=== PATIENT | female | born 1965 | race Caucasian/White ===

== ENCOUNTER → 2018-03-05 | Outpatient (CLI) | payer BC ==
[2018-03-09 11:51] LABS: QUANTIF MITOGEN-NIL 9.14 IU/ML; QUANTIFERON NEGATIVE (NEGATIVE); QUANTIFERON NIL 0.55 IU/ML
== END | disposition home or self-care (01) ==
LOC: C.LABSPEC 12:53
PROVIDERS: ATTEND Internal Medicine Gastroenterology
DX: K51.30 Ulcerative (chronic) rectosigmoiditis without complications (principal)

== ENCOUNTER 2021-11-23 15:46 | Inpatient (IN) ==
[2021-11-23] MEDS ORDERED: PIPERACILL/TAZOBAC CONSULT ACTIVE PRN (16:04)
[2021-11-23] MEDS ORDERED: PIPERACILLIN/TAZOBACTAM 4.5 GM/120 ML BAG IV ONE (16:04)
--- NOTE | 2021-11-23 16:25 | Emergency Department Note ---
History of Present Illness General Chief complaint: Abdominal Pain Stated complaint: REF FOR ACUTE APPENDICITIS, ABDOM PAIN Time Seen by Provider: 11/23/21 16:04 Source: patient History of Present Illness Provider complaint: Right abdominal pain Onset (ago): day(s) 3 Location: abdomen and right Radiation: non-radiation Pain Consistency: + constant Maximum Pain Intensity: 2 Quality: + dull Relieved By: + none Associated symptoms: + fever/chills and + loss of appetite; no chest pain, no cough, no nausea/vomiting or no shortness of breath This is a 55-year-old female who presents with right lower quadrant pain starting 3 days ago. She states it started on the right abdomen 3 days ago. She has some bowel issues and thought nothing of it but went to [facility] and a CT was ordered which showed acute appendicitis with an abscess. She was sent here for further evaluation. She describes the pain as dull. It is worse when he presses on it. She has had tactile fevers and chills and loss of appetite. She has not eaten anything since yesterday. She denies any cough or cold symptoms, chest pain, shortness of breath, vomiting, diarrhea or urinary symptoms. Home Medications Medication Instructions Recorded Confirmed Type acetaminophen 500 mg capsule 1,000 mg PO HS PRN 12/03/20 11/23/21 History escitalopram oxalate 10 mg tablet 10 mg PO DAILY 12/03/20 11/23/21 History risedronate 150 mg tablet 150 mg PO MONTHLY 12/03/20 11/23/21 History Infusion For Ibs 1 dose IV .Q6WK 11/23/21 11/23/21 History rosuvastatin 5 mg tablet 5 mg PO DAILY 11/23/21 11/23/21 History Allergies Allergy/AdvReac Type Severity Reaction Status Date / Time No Known Allergies Allergy Verified 11/23/21 17:34 Past Med/Surg History Medical History Prediabetes Social History Smoking Status: Former smoker Preferred Language: Colombian Feels Safe at Home: Yes Review of Systems See HPI for pertinent positives & negatives. and A total of 10 systems reviewed and were otherwise negative Physical Exam Vital Signs Vital Signs - 24 hr 11/23/21 15:48 Temperature 36.7 C Temperature Source Temporal Artery Scan Pulse Rate 94 H Pulse Rhythm Regular Pulse Strength Normal Respiratory Rate 20 Respiratory Effort / Characteristics Non-Labored Spontaneous Respiratory Depth Normal Respiratory Pattern Regular Blood Pressure 147/94 H Blood Pressure Mean 111 Blood Pressure Position Sitting Pulse Oximetry 97 Oxygen Delivery Method Room Air Sepsis Recent Fever Within 48 Hours No Sepsis New/Unexplained Change in Mental Status No Sepsis Action Taken by Nursing No Action Required Constitutional: Vital signs reviewed. Eyes: Pupils are equal round reactive to light. Conjunctiva are noninjected. ENT: Pharynx is clear without erythema or exudate. Mucous membranes are dry. Neck supple without meningeal signs. Respiratory: Clear to auscultation bilaterally. Breath sounds are equal bilaterally. Cardiovascular: Regular rate and rhythm. No rubs or gallops. GI: Soft, nondistended with tenderness in the right lower quadrant. No guarding. Bowel sounds are present. Musculoskeletal: No peripheral edema. No lower extremity tenderness. Integumentary: No cyanosis. or jaundice. Neurological: The patient is awake and alert. No focal deficits. Psychiatric: Normal affect. Not anxious appearing. Course Administered Medications Discontinued Medications Piperacillin Sod/Tazobactam Sod (Zosyn) 4.5 gm in 120 mls @ 240 mls/hr IV NOW ONE Stop: 11/23/21 16:33 Last Infusion: 11/23/21 17:50 Dose: 0 mls/hr Documented by: [id number] Admin: 11/23/21 17:13 Dose: 240 mls/hr Documented by: [id number] Sodium Chloride (Nss 1000ml) 500 mls @ 999 mls/hr IV .Q31M ONE Stop: 11/23/21 17:06 Last Infusion: 11/23/21 17:51 Dose: 0 mls/hr Documented by: [id number] Admin: 11/23/21 17:13 Dose: 999 mls/hr Documented by: [id number] Medical Decision Making Differential Diagnosis Acute appendicitis, perforation, abscess, dehydration, IBS Medical Records Attestation: I reviewed the patient's medical records. I did perform a limited focused review of portions of the patient's old chart on the electronic medical record. The patient had a CT of the abdomen pelvis today which showed the following:Findings consistent with acute appendicitis. Extensive periappendiceal infiltration with suspected small periappendiceal abscess along the base of the appendix. The findings raise the possibility of perforated appendicitis. Wall thickening at the base of the cecum may be reactive. Underlying mucosal lesion cannot be excluded and findings could be evaluated at time of surgery. Prominent ileocolic lymph nodes are also indeterminate but probably reactive. Home Medications Current Medication List: was personally reviewed by me Laboratory Data Attestation: I reviewed the patient's lab results. Result diagrams: 11/23/21 16:58 11/23/21 16:58 Lab Results 11/23/21 11/23/21 11/23/21 Range/Units 16:58 16:58 17:15 WBC 7.48 (4.8-10.8) K/uL RBC 4.37 (4.2-5.4) M/uL Hgb 13.6 (12.0-16.0) g/dL Hct 38.2 (37-47) % MCV 87.4 (80-100) fL MCH 31.1 (25-34) pg MCHC 35.6 (32-36) g/dL RDW Std Deviation 41.2 (36.4-46.3) fL RDW Coeff of James 12.7 (11.5-14.5) % Plt Count 237 (130-400) K/uL MPV 10.8 H (7.4-10.4) fL Immature Gran % (Auto) 0.1 % Neut % (Auto) 61.8 % Lymph % (Auto) 26.3 % [place] % (Auto) 9.1 % Eos % (Auto) 2.4 % Baso % (Auto) 0.3 % Neut # (Auto) 4.62 (1.4-6.5) K/uL Lymph # (Auto) 1.97 (1.2-3.4) K/uL [place] # (Auto) 0.68 H (0.11-0.59) K/uL Eos # (Auto) 0.18 (0-0.5) K/uL Baso # (Auto) 0.02 (0-0.2) K/uL Immature Gran # (Auto) 0.01 (0.00-0.02) K/uL Sodium 136 (136-145) mmol/L Potassium 3.8 (3.5-5.1) mmol/L Chloride 100 (98-107) mmol/L Carbon Dioxide 26 (21-32) mmol/L Anion Gap 10 (3-11) BUN 8 (6-23) mg/dl Creatinine 0.59 L (0.6-1.2) mg/dl Est Cr Clr Drug Dosing 116.1 ml/min Est GFR ( Amer) 117.9 ml/min Est GFR (Non-Af Amer) 101.7 ml/min BUN/Creatinine Ratio 13.6 (10-20) Glucose 102 H (70-99(Fasting)) mg/dl Calcium 8.8 (8.5-10.1) mg/dl Total Bilirubin 0.6 (0.2-1.0) mg/dl AST 25 (13-39) U/L ALT 34 (7-52) U/L Alkaline Phosphatase 155 H (34-104) U/L Total Protein 7.6 (6.0-8.3) gm/dl Albumin 4.0 (3.4-5.0) gm/dl Globulin 3.6 (2.5-4.0) gm/dl Albumin/Globulin Ratio 1.1 (0.9-2) SARS-CoV-2, RNA, NAAT NEGATIVE (NEGATIVE) MDM Narrative I did evaluate the patient as noted above. She is sent here from her doctor's office for a CAT scan showing acute appendicitis with abscess. IV access was established. She declines any pain medication at this time. She was given normal saline IV as well as Zosyn IV. She was made NPO. I did order a screening COVID test. I did order and review the patient's blood work as noted in the electronic medical record. CBC demonstrates no leukocytosis or anemia or left shift. CMP is unremarkable other than an alk phos of 155. COVID testing is negative. I did discuss case with Dr. Vyas of surgery. He did assess the patient here in the emergency department and took her to the OR for surgical care. Impression & Plan Appendicitis with abscess Discharge Plan Visit Data Chief Complaint: Abdominal Pain Stated Complaint: REF FOR ACUTE APPENDICITIS, ABDOM PAIN ED Provider: Orion Leung Discharge Problem: Appendicitis with abscess Patient Disposition: Being Evaluated by Surgeon Forms Stand Alone Forms: My [facility] Prescriptions Prescriptions: No Action rosuvastatin 5 mg tablet 5 mg PO DAILY RF: 0 Infusion For Ibs 1 dose IV .Q6WK RF: 0 acetaminophen [Tylenol Extra Strength] 500 mg Capsule 1,000 mg PO HS PRN (Reason: Sleep) RF: 0 escitalopram oxalate 10 mg tablet 10 mg PO DAILY RF: 0 risedronate 150 mg tablet 150 mg PO MONTHLY RF: 0 Referrals Referrals: PCP,NO [Physician] -
[2021-11-23] MEDS ORDERED: SODIUM CHLORIDE 0.9% 1000ML 500 ML IV ONE (16:36)
[2021-11-23 17:10] LABS: Basophils # (auto) 0.02 K/uL (0-0.2); Basophils % (auto) 0.3 %; Eosinophils # (auto) 0.18 K/uL (0-0.5); Eosinophils % (auto) 2.4 %; Hematocrit (blood only) 38.2 % (37-47); Hemoglobin 13.6 g/dL (12.0-16.0); Immature Granulocytes # (auto) 0.01 K/uL (0.00-0.02); Immature Granulocytes % (auto) 0.1 %; Lymphocytes # (auto) 1.97 K/uL (1.2-3.4); Lymphocytes % (auto) 26.3 %; Mean Corpuscular Hemoglobin 31.1 pg (25-34); Mean Corpuscular Hgb Conc 35.6 g/dL (32-36); Mean Corpuscular Volume 87.4 fL (80-100); Mean Platelet Volume 10.8 fL (7.4-10.4); Monocytes # (auto) 0.68 K/uL (0.11-0.59); Monocytes % (auto) 9.1 %; Neutrophils # (auto) 4.62 K/uL (1.4-6.5); Neutrophils % (auto) 61.8 %; Platelet Count 237 K/uL (130-400); RDW Coefficient of Variation 12.7 % (11.5-14.5); RDW Standard Deviation 41.2 fL (36.4-46.3); Red Blood Count 4.37 M/uL (4.2-5.4); White Blood Count 7.48 K/uL (4.8-10.8)
[2021-11-23 17:51] LABS: Albumin Globulin Ratio 1.1 (0.9-2); BUN Creatinine Ratio 13.6 (10-20); Bilirubin,Total 0.6 mg/dl (0.2-1.0); Calcium 8.8 mg/dl (8.5-10.1); Creatinine Clr Calc Pharmacy 116.1 ml/min; Est GFR (African American) 117.9 ml/min; Est GFR (Non-African American) 101.7 ml/min; Globulin 3.6 gm/dl (2.5-4.0); Potassium 3.8 mmol/L (3.5-5.1); Total Protein 7.6 gm/dl (6.0-8.3)
--- NOTE | 2021-11-23 17:56 | Anesthesiology Consultation ---
Date of Service November 23, 2021 Assessment & Plan (1) Encounter for pre-operative examination: Chart Review Chart Review: Acceptable Risk for Surgery and Patient NOT seen in Pre Admission Testing Consults Requested none History Surgery Operation Date: 11/23/21 18:30 Proposed Procedures p Laparoscopic Appendectomy(Not Applicable) - Rusty Vyas MD Height/Weight Height: 5 ft 3 in Weight: 96.1 kg Allergies Allergy/AdvReac Type Severity Reaction Status Date / Time No Known Allergies Allergy Verified 11/23/21 17:34 Medications Home Medications Medication Instructions Recorded Confirmed Last Taken acetaminophen 500 mg capsule 1,000 mg PO HS PRN 12/03/20 11/23/21 12/02/20 escitalopram oxalate 10 mg tablet 10 mg PO DAILY 12/03/20 11/23/21 11/23/21 risedronate 150 mg tablet 150 mg PO MONTHLY 12/03/20 11/23/21 11/18/21 Infusion For Ibs 1 dose IV .Q6WK 11/23/21 11/23/21 Unknown rosuvastatin 5 mg tablet 5 mg PO DAILY 11/23/21 11/23/21 11/23/21 Past Medical History Medical History Prediabetes Social History Smoking Status: Former smoker Physical Exam Vital Signs Last Vital Signs Temp 98.1 F 11/23/21 15:48 Pulse 67 11/23/21 17:54 Resp 20 11/23/21 17:54 BP 131/67 11/23/21 17:54 Pulse Ox 96 11/23/21 17:54 Testing Laboratory Results 11/23/21 16:58 11/23/21 16:58
[2021-11-23] MEDS ORDERED: ROCURONIUM BROMIDE 10 MG/ML 5 ML VIAL IV ONE (17:58)
[2021-11-23] MEDS ORDERED: DEXAMETHASONE SOD INJ 4 MG/ML VIAL ONE (17:58)
[2021-11-23] MEDS ORDERED: MIDAZOLAM HCL 1 MG/ML 2ML VIAL ONE (17:58)
[2021-11-23] MEDS ORDERED: ONDANSETRON INJ 2 MG/ML 2 ML VIAL ONE ×2 (17:58→22:09)
[2021-11-23] MEDS ORDERED: PROPOFOL IV EMULSION 10 MG/ML 20 ML VIAL IV ONE (17:58)
[2021-11-23] MEDS ORDERED: LIDOCAINE 2% 2 ML VIAL/AMP(20MG/ML) INFIL ONE (17:58)
[2021-11-23] MEDS ORDERED: fentaNYL citrate 100 MCG/2 ML VIAL ONE ×3 (18:00→22:16)
[2021-11-23] MEDS ORDERED: LIDOCAINE 1% LOCAL 20 ML VIAL ONE (18:01)
[2021-11-23] MEDS ORDERED: BACITRACIN OINT 15 GM TUBE ONE (18:01)
[2021-11-23] MEDS ORDERED: BUPIVACAINE 0.5 % 5 MG/1 ML MPF 30ML VIAL ONE (18:01)
[2021-11-23] MEDS ORDERED: ePHEDrine sulfate 50 MG/ML AMP IV PRN (18:10)
[2021-11-23] MEDS ORDERED: ONDANSETRON INJ 2 MG/ML 2 ML VIAL IV PRN (18:10)
[2021-11-23] MEDS ORDERED: ATROPINE SULFATE 0.1 MG/ML 10ML SYR IV PRN (18:10)
[2021-11-23] MEDS ORDERED: fentaNYL citrate 100 MCG/2 ML VIAL IV PRN (18:10)
[2021-11-23] MEDS ORDERED: GLYCOPYRROLATE 0.2 MG/ML VIAL ONE (21:34)
[2021-11-23] MEDS ORDERED: KETOROLAC 30 MG/ML VIAL ONE (21:34)
[2021-11-23] MEDS ORDERED: NEOSTIGMINE METHYLSULFATE 1 MG/ML 10ML VIAL ONE (21:34)
--- NOTE | 2021-11-23 21:45 | Post Operative Brief Note ---
Immediate Post Op Note v1 Date of Surgery November 23, 2021 Pre & Post Diagnosis Operation Date: 11/23/21 18:30 Pre-Op Diagnosis: Appendicitis with abscess and perforated, Post-Op Diagnosis: Appendicitis with abscess and perforated, I identified the patient and participated in the time-out.: Yes Procedure Operation Date: 11/23/21 18:30 Actual Procedures p Laparoscopic Appendectomy(Not Applicable) - Rusty Vyas MD Surgeon Rusty Vyas MD Director Title operating room surgical technologist Estimated Blood Loss 15 Findings Consistent with Post-Op Diagnosis acute appendicitis with abscess and perforation, Fluids 1000ml Specimens appendix Drains Powell Catheter and Azar-Walker Drain Complications none Disposition Accompanied Patient To Recovery: Yes
--- NOTE | 2021-11-23 22:20 | Anesthesiology Progress Note ---
Date of Service November 23, 2021 Anesthesia Post Procedure Vital Signs Vital Signs: Temp Pulse Pulse Pulse Resp BP BP 11/23/21 22:10 83 13 141/80 H 11/23/21 22:00 90 18 148/78 H 11/23/21 21:54 97.5 F L 91 H 14 149/66 H 11/23/21 18:09 99.3 F 84 16 128/82 11/23/21 18:00 85 20 131/67 11/23/21 17:54 67 20 131/67 11/23/21 15:48 98.1 F 94 H 20 147/94 H Pulse Ox 11/23/21 22:10 98 11/23/21 22:00 98 11/23/21 21:54 95 11/23/21 18:09 98 11/23/21 18:00 97 11/23/21 17:54 96 11/23/21 15:48 97 Pain Intensity Abdomen: Pain Intensity: 5 Transfer of Care Handoff Completed per policy Notes Mental Status: alert / awake / arousable and participated in evaluation Patient Amnestic to Procedure: Yes Nausea / Vomiting: adequately controlled Pain: adequately controlled Airway Patency, RR, SpO2: stable & adequate BP & HR: stable & adequate Hydration State: stable & adequate Anesthetic Complications: no major complications apparent and Pt Satisfied with anesthetic care
[2021-11-24] MEDS ORDERED: ONDANSETRON INJ 2 MG/ML 2 ML VIAL IV PRN (00:05)
[2021-11-24] MEDS ORDERED: [UNRECOGNIZED DRUG - OTHER] IV SCH (00:05)
[2021-11-24] MEDS ORDERED: PIPERACILL/TAZOBAC CONSULT ACTIVE PRN (00:05)
[2021-11-24] MEDS ORDERED: oxyCODONE/ACETAMINOPHEN 5mg/325mg TAB PO PRN (00:05)
[2021-11-24] MEDS: LACTATED RINGER'S 1,000 ML IV SCH ×2 (00:20→22:26)
[2021-11-24] MEDS ORDERED: ACETAMINOPHEN 500 MG TAB PO PRN (00:31)
[2021-11-24] MEDS: PIPERACILLIN/TAZOBACTAM 4.5 GM in DEXTROSE 5% 100 ML IV SCH ×4 (01:19→23:22)
[2021-11-24] MEDS: HYDROmorphone INJ 1 MG/ML SYRINGE IV PRN ×4 (01:23→22:26)
--- NOTE | 2021-11-24 05:44 | Operative Report (OR) ---
PREOPERATIVE DIAGNOSIS: Acute appendicitis with perforation and abscess. POSTOPERATIVE DIAGNOSIS: Acute appendicitis with perforation and abscess. OPERATION: Laparoscopic appendectomy. KASANDRA drainage x1. SURGEON: Rusty Vyas MD ANESTHESIA: General. ESTIMATED BLOOD LOSS: About 15 mL. FINDINGS: Acute appendicitis with perforation and abscess. COMPLICATIONS: None. INDICATIONS FOR THE PROCEDURE: This is a 55-year-old female who presented to the ED with a 3-day his tory of acute abdominal pain. The patient had a CT scan diagnosis of acute appendicitis with perfora tion and abscess. After I reviewed the patient's history and physical exam, labs, and CT scan with t he patient, I recommended to do a laparoscopic appendectomy, possible open. I did talk to the patien t about the benefits, risks, alternate procedures. I indicated the risks may include, but not limite d to, such as bleeding, infection, injury to other organs, abscess, bowel leak, bowel obstruction, in cisional hernia. The patient understands. She signed informed consent and I answered all questions. DETAILS OF PROCEDURE: After we identified the patient and verified the procedure, we brought in the patient to the OR, put the patient in the supine position on the OR table. The patient received SCDs on bilateral legs to prevent DVT. Also, the patient received 3.375 grams Zosyn IV for prophylactic antibiotic. The patient received general anesthesia without difficulty. Also, the patient received Powell catheter insertion. The abdomen was prepped and draped in routine sterile fashion. After time out, I injected the local anesthesia by using 1% lidocaine mixed with 0.5% Marcaine just above the um bilicus. Then, I made a small incision just above umbilicus, opened fascia, opened peritoneum. Unde r direct vision, put a Patrick trocar in, connected to CO2 to create pneumoperitoneum, flow rate at 6 liters per minute, pressure not more than 14 mmHg. Once we got a nice pneumoperitoneum, we put the camera in and looked around the abdomen. It showed s ignificant inflammation on the right lower quadrant area, there was some free fluid on the pelvic are a. At this moment, we put another two 5 mm trocars on the left lower quadrant area and then we mobil ized the right lower quadrant area, there was some pus that came out immediately. We suctioned the p us out and sent to culture and then we mobilized the appendix. The appendix showed significant infla mmation. Also, the patient had perforation on the base of the appendix and at this moment, we comple tely mobilized the appendix. Then, we used the Harmonic to take down the appendiceal, and we used st aple transection on the base of appendix including the perforation of the appendix, transection of th e appendix on the base of appendix, rechecked the staple line, intact and no leak, no active bleeding . Then we used the catch bag to remove the appendix. Then, we reinserted the Patrick trocar in, conn ected to CO2 to create pneumoperitoneum, again looked around the abdomen and we suctioned all the flu id out and then we put one 10 mm KASANDRA drainage on the right lower quadrant area. Then I used 3-0 nylon and fixed the KASANDRA drainage on the skin. Then, we removed all trocars under direct vision. No active bleeding from the trocar site. The pneumoperitoneum was released. Then I closed the umbilical inci nancy fascial layer by using 0 Vicryl [id number] x2, closed subcutaneous layer by using 2-0 Vicry l interruptedly, closed skin by using 4-0 Vicryl continuous running, closed another 5 mm trocar site skin only by using 4-0 Vicryl. Then, we put the dressing on and then we removed the Powell catheter. The patient tolerated the procedure well. All instrument, needle and sponge counts were correct x2 at the end of the case. The patient was transferred to recovery room in stable condition. After the procedure, I did talk to the patient and patient's family member about the OR finding and the proced ure we did. The specimen was sent to pathology. Job ID: [id number]
[2021-11-24 06:24] LABS: Basophils # (auto) 0.01 K/uL (0-0.2); Basophils % (auto) 0.1 %; Hematocrit (blood only) 38.3 % (37-47); Hemoglobin 13.3 g/dL (12.0-16.0); Immature Granulocytes # (auto) 0.02 K/uL (0.00-0.02); Immature Granulocytes % (auto) 0.3 %; Lymphocytes # (auto) 0.88 K/uL (1.2-3.4); Lymphocytes % (auto) 11.1 %; Mean Corpuscular Hemoglobin 30.6 pg (25-34); Mean Corpuscular Hgb Conc 34.7 g/dL (32-36); Mean Platelet Volume 10.7 fL (7.4-10.4); Monocytes # (auto) 0.23 K/uL (0.11-0.59); Monocytes % (auto) 2.9 %; Neutrophils # (auto) 6.81 K/uL (1.4-6.5); Neutrophils % (auto) 85.6 %; Platelet Count 273 K/uL (130-400); RDW Coefficient of Variation 12.7 % (11.5-14.5); RDW Standard Deviation 41.2 fL (36.4-46.3); Red Blood Count 4.35 M/uL (4.2-5.4); White Blood Count 7.95 K/uL (4.8-10.8)
[2021-11-24 06:42] LABS: Albumin Globulin Ratio 1.1 (0.9-2); Albumin Level 3.8 gm/dl (3.4-5.0); BUN Creatinine Ratio 16.7 (10-20); Bilirubin,Total 0.6 mg/dl (0.2-1.0); Calcium 8.3 mg/dl (8.5-10.1); Creatinine Clr Calc Pharmacy 101.4 ml/min; Est GFR (African American) 113.7 ml/min; Est GFR (Non-African American) 98.1 ml/min; Globulin 3.5 gm/dl (2.5-4.0); Potassium 4.5 mmol/L (3.5-5.1); Total Protein 7.3 gm/dl (6.0-8.3)
[2021-11-24] MEDS: ROSUVASTATIN CALCIUM 5 MG TAB PO SCH (10:20)
[2021-11-24] MEDS: ESCITALOPRAM OXALATE 10 MG TAB PO SCH (10:20)
--- NOTE | 2021-11-24 10:50 | Surgery Progress Note ---
Date of Service November 24, 2021 Assessment & Plan (1) Appendicitis with abscess: Plan: F/U S/P laparoscopic appendectomy, POD 1 Plan, I update to pt about OR finding and the procedure pt had, pt understood, continue IV antibiotic, clear diet, OOB will F/U, Plan: F/U S/P laparoscopic appendectomy, POD 1 Plan, I update to pt about OR finding and the procedure pt had, pt understood, continue IV antibiotic, clear diet, OOB will F/U, Admission and Anticipated Discharge Date Admission Date: November 23, 2021 Subjective F/U S/P laparoscopic appendectomy, POD 1 pt feels better, less abdominal pain, T 37.1, KASANDRA 50 ml clear, Physical Exam Constitutional: WD/WN, vitals as above Eyes: PERRL, conjunctivae normal, anicteric sclerae Neck: trachea midline, no thyromegaly Respiratory: normal respiratory effort, lungs clear to auscultation Cardiovascular: RRR, no murmur, no edema Gastrointestinal (Abdomen): soft, mild tenderness at incision site, no rebound pain, no distend, BS +, KASANDRA intact, all incisions intact, no redness, Musculoskeletal: no cyanosis or clubbing, extremities motor strength 5/5 Neurologic: patellar DTR's 2+ bilat, sensation intact Psychiatric: A+Ox3, euthymic affect Results & Data ([facility]) Vital Signs (Past 12 Hours) Vital Signs Temp Pulse Pulse Resp BP BP Pulse Ox 11/24/21 07:30 37.1 C 72 20 117/70 90 11/24/21 03:00 36.9 C 76 16 132/78 90 11/24/21 00:00 36.7 C 77 14 133/80 93 11/23/21 23:30 36.8 C 82 16 123/79 93 11/23/21 23:00 36.7 C 80 14 123/79 93 Laboratory Results Abnormal lab results 11/23/21 11/23/21 11/24/21 Range/Units 16:58 16:58 05:42 MPV 10.8 H 10.7 H (7.4-10.4) fL Neut # (Auto) 6.81 H (1.4-6.5) K/uL Lymph # (Auto) 0.88 L (1.2-3.4) K/uL [place] # (Auto) 0.68 H (0.11-0.59) K/uL Creatinine 0.59 L (0.6-1.2) mg/dl Glucose 102 H (70-99(Fasting)) mg/dl Calcium (8.5-10.1) mg/dl Alkaline Phosphatase 155 H (34-104) U/L 11/24/21 Range/Units 05:42 MPV (7.4-10.4) fL Neut # (Auto) (1.4-6.5) K/uL Lymph # (Auto) (1.2-3.4) K/uL [place] # (Auto) (0.11-0.59) K/uL Creatinine (0.6-1.2) mg/dl Glucose 143 H (70-99(Fasting)) mg/dl Calcium 8.3 L (8.5-10.1) mg/dl Alkaline Phosphatase 139 H (34-104) U/L
[2021-11-25] MEDS: HYDROmorphone INJ 1 MG/ML SYRINGE IV PRN ×2 (05:51→12:39)
[2021-11-25] MEDS: LACTATED RINGER'S 1,000 ML IV SCH (05:51)
[2021-11-25] MEDS: ROSUVASTATIN CALCIUM 5 MG TAB PO SCH (08:45)
[2021-11-25] MEDS: ESCITALOPRAM OXALATE 10 MG TAB PO SCH (08:45)
[2021-11-25] MEDS: PIPERACILLIN/TAZOBACTAM 4.5 GM in DEXTROSE 5% 100 ML IV SCH (08:46)
--- NOTE | 2021-11-25 09:07 | Surgery Progress Note ---
Date of Service November 25, 2021 Assessment & Plan (1) Appendicitis with abscess: Plan: F/U S/P laparoscopic appendectomy, POD 1 Plan, I update to pt about OR finding and the procedure pt had, pt understood, continue IV antibiotic, clear diet, OOB will F/U, 11/25/2021 9:10 AM pt is doing fine, no fever, Discharge home today with po antibiotic, keep KASANDRA drainage, I will remove the KASANDRA on 11/28/2021 at my clinic, post-op care instruction was given, pt agrees with the discharge, I answered all questions, F/U me on 11/28/2021 Plan: F/U S/P laparoscopic appendectomy, POD 1 Plan, I update to pt about OR finding and the procedure pt had, pt understood, continue IV antibiotic, clear diet, OOB will F/U, Admission and Anticipated Discharge Date Admission Date: November 23, 2021 Subjective F/U S/P laparoscopic appendectomy, POD 1 pt feels better, less abdominal pain, T 37.1, KASANDRA 50 ml clear, 11/25/2021 9:08AM pt is doing better, no significant abdominal pain, no fever, T 36.4, KASANDRA 70 ml clear Physical Exam Constitutional: WD/WN, vitals as above Eyes: PERRL, conjunctivae normal, anicteric sclerae Neck: trachea midline, no thyromegaly Respiratory: normal respiratory effort, lungs clear to auscultation Cardiovascular: RRR, no murmur, no edema Gastrointestinal (Abdomen): soft, mild tenderness at incision site, no rebound pain, no distend, BS + KASANDRA intact, the incision intact, no redness, Musculoskeletal: no cyanosis or clubbing, extremities motor strength 5/5 Neurologic: patellar DTR's 2+ bilat, sensation intact Psychiatric: A+Ox3, euthymic affect Results & Data ([facility]) Vital Signs (Past 12 Hours) Vital Signs Temp Pulse Pulse Resp BP Pulse Ox 11/25/21 08:39 36.4 C L 90 20 129/75 92 11/24/21 23:12 36.6 C 72 16 126/75 92
--- NOTE | 2021-11-25 10:19 | Discharge Summary (DS) ---
DATE OF ADMISSION: 11/23/2021. DATE OF DISCHARGE: 11/25/2021. ADMITTING DIAGNOSES: Acute appendicitis with perforation and abscess. POSTOPERATIVE DIAGNOSES: Acute appendicitis with perforation and abscess. OPERATION: Laparoscopic appendectomy with KASANDRA drainage. SURGEON: Rusty Vyas MD. DETAILS OF DISCHARGE SUMMARY: This is a 55-year-old female who presented to ED with severe abdominal pain. The patient had a CT scan diagnosis of acute appendicitis with perforation and abscess. We t ook the patient to the OR, we did laparoscopic appendectomy, drainage of abscess with KASANDRA drainage and the patient tolerated the procedure well. After the procedure, the patient was transferred to [facility] room and later on transferred to regular floor. The patient is doing fine and patient tolerated a clear diet. No nausea, no vomiting. No significant abdominal pain. The patient's KASANDRA drainage was 70 mL, clear color. PHYSICAL EXAMINATION: VITAL SIGNS: Temperature is 36.4, heart rate 90, respiratory rate 20, blood pressure 129/75, O2 satu ration 92% on room air. GENERAL: The patient is alert, awake, oriented x3. HEENT: Within normal limitation. NEUROLOGIC: Intact. NECK: No JVD. CHEST: Bilateral lung sounds clear. HEART: Normal S1 and S2. No murmur. ABDOMEN: Soft, nondistended, mild tenderness on the incision site. No rebound pain. All incisions intact. No redness. KASANDRA drainage is intact. EXTREMITIES: No edema. The patient wanted to go home today. We gave the patient postoperative care instruction and keep the KASANDRA drainage until come back in my office on 11/28/2021 for removal of KASANDRA drainage. Also, we gave th e patient 7 days p.o. antibiotic. I will follow up the patient on 11/28/2021. The patient understan ds. The patient agreed to go home today. I answered all questions. Job ID: [id number]
== END 2021-11-25 14:45 | disposition home or self-care (01) | DRG 339 ==
LOC: ED 15:46 → ASU 18:00 → 3W 21:51

== ENCOUNTER 2023-01-29 13:25 | Inpatient (IN) ==
--- NOTE | 2023-01-29 14:05 | Emergency Department Note ---
History of Present Illness General Chief complaint: Diarrhea Stated complaint: REF BY ANAI, DIARRHEA Time Seen by Provider: 01/29/23 14:00 History of Present Illness Maximum Pain Intensity: 4 This 57-year-old female patient with a history of ulcerative colitis presents to the emergency department for evaluation of diarrhea for the past month. Having up to 25 bowel movements a day that are just small amounts of liquid stool at a time. Has a lot of fecal urgency as well. Yesterday and this morning she saw a small amount of bright red blood in her stool. Has also had weight loss, de creased appetite, nausea. Has a constant cramping in her abdomen. Denies any vomiting or fever. Has occasional lightheadedness and occasional feelings like she is going to pass out. She is on Entyvio every 4 weeks. She was on a budesonide taper 1 month ago, but states that she stopped it early because she did not feel it was helping. She tends to get flares of her UC every time she stops her steroids. She is due for her next Entyvio infusion tomorrow. She was diagnosed with UC at 31 years old. She has failed Humira in the past as well. She has been on Entyvio for 2.5 years. She has never been on oral medications for her UC other than steroids. She was seen in the emergency department on 01/25/2023 for the above symptoms as well with a CT scan of the abdomen and pelvis that showed mild wall thickening throughout the majority of the large bowel which may be secondary to partial distention versus a mild nonspecific colitis, but no other acute abnormalities. Urinalysis was concerning for UTI and she was started on cefdinir, but urine culture grew 3 types of organisms present which is probable skin angus. Stool sample was not able to be obtained in the ER on 01/25/2023. The patient states that she has been taking the cefdinir without improvement of her symptoms. She follows with [facility] and spoke with REINA Jackson this morning and was advised to come to the ER for probable admission. Has a colonoscopy scheduled for the end of this month. Had a sigmoidectomy on 09/27/22 that showed congested, erythematous, and granular mucosa in the rectum and the sigmoid colon. After this scope her Entyvio infusions were increased to every 4 weeks per patient. Home Medications Medication Instructions Recorded Confirmed Type acetaminophen 500 mg capsule 1,000 mg PO HS PRN Sleep 12/03/20 01/29/23 History risedronate 150 mg tablet 150 mg PO Q30D osteoporosis 12/03/20 01/29/23 History rosuvastatin 5 mg tablet 5 mg PO HS 11/23/21 01/29/23 History vedolizumab 300 mg intravenous 300 mg IV Q30D 09/23/22 01/29/23 History solution (Entyvio) cefdinir 300 mg capsule 300 mg PO BID 5 days #10 caps 01/25/23 01/29/23 Rx escitalopram oxalate 20 mg tablet 10 mg PO QPM 01/25/23 01/29/23 History ondansetron 4 mg disintegrating 4 mg PO Q8H PRN nausea and 01/25/23 01/29/23 Rx tablet vomiting #14 tabs tirzepatide 10 mg/0.5 mL 10 mg subcut WE 01/29/23 01/29/23 History subcutaneous pen injector (Dane) trazodone 50 mg tablet 25 mg PO HS 01/29/23 01/29/23 History Allergies Allergy/AdvReac Type Severity Reaction Status Date / Time No Known Allergies Allergy Verified 01/29/23 16:43 Past Med/Surg History Medical History Anxiety History of COVID-19 beginning 2021, home test, mild symptoms>resolved Hx of flexible sigmoidoscopy Hyperlipidemia IBS (irritable bowel syndrome) Osteoporosis Prediabetes Sleep apnea CPAP Surgical History Hx of appendectomy Hx of colonoscopy Social History Smoking Status: Never smoker Second Hand Exposure: No; Do You Dip or Chew Tobacco: No; Hx Alcohol Use: No Hx Substance Use: No Preferred Language: Kyrgyz Communication Ability: Effective Circuitry Negative Inspector Required: No Beliefs That Will Affect Care: None Current Living Situation: Other Current Living Situation Comment: roommate Feels Safe at Home: Yes Assistive Devices: CPAP and Glasses Review of Systems See HPI for pertinent positives & negatives. Physical Exam Vital Signs Vital Signs - 24 hr 01/29/23 13:37 01/29/23 14:35 01/29/23 14:35 Temperature 36.2 C L Temperature Source Skin Pulse Rate 94 H Pulse Rate [Left Finger] 86 Respiratory Rate 20 18 Respiratory Effort / Characteristics Non-Labored Respiratory Depth Normal Blood Pressure 132/90 Blood Pressure [Left Arm] 123/66 Blood Pressure Mean 104 Blood Pressure Mean [Left Arm] 85 Pulse Oximetry 98 95 94 Oxygen Delivery Method Room Air Room Air Room Air Sepsis Recent Fever Within 48 Hours No Sepsis New/Unexplained Change in Mental Status N/A Sepsis Action Taken by Nursing No Action Required 01/29/23 16:00 Temperature Temperature Source Pulse Rate Pulse Rate [Left Finger] 88 Respiratory Rate Respiratory Effort / Characteristics Respiratory Depth Blood Pressure Blood Pressure [Left Arm] 129/76 Blood Pressure Mean Blood Pressure Mean [Left Arm] 93 Pulse Oximetry 97 Oxygen Delivery Method Sepsis Recent Fever Within 48 Hours Sepsis New/Unexplained Change in Mental Status Sepsis Action Taken by Nursing VITALS: Vitals are noted on the nurse's note and reviewed by myself. GENERAL: Non toxic, no acute distress, non-diaphoretic. SKIN: Capillary refill <2 sec. EYES: PERRLA. EOMI. Conjunctivae without injection, sclerae without icterus. NOSE: Patent without discharge. MOUTH: Mucous membranes moist. Uvula midline. Airway patent. NECK: Supple without nuchal rigidity. HEART: Regular rate and rhythm without murmurs gallops or rubs. LUNGS: Clear to auscultation bilaterally without wheezes, rales or rhonchi. No retractions or accessory muscle use. ABDOMEN: Positive bowel sounds x 4. Normal tympanic percussion. Soft, mild diffuse tenderness to palpation, without masses or organomegaly. She states there is no change in her abdominal pain or tenderness since her CT scan. No CVA tenderness. Ivy sign negative. No guarding or rebound tenderness. No focal RLQ or LLQ tenderness. Course Administered Medications Discontinued Medications Sodium Chloride (Nss 1000ml) 1,000 mls @ 999 mls/hr IV .Q1H1M STA Stop: 01/29/23 15:35 Last Infusion: 01/29/23 18:30 Dose: 0 mls/hr Documented By: Admin: 01/29/23 15:11 Dose: 999 mls/hr Documented By: MARJORIE Sodium Chloride (Nss 1000ml) 1,000 mls @ 999 mls/hr IV .Q1H1M ONE Stop: 01/29/23 17:21 Last Infusion: 01/29/23 18:30 Dose: 0 mls/hr Documented By: Admin: 01/29/23 16:52 Dose: 999 mls/hr Documented By: ACC Metoclopramide HCl (Metoclopramide Hcl Inj 5 Mg/Ml 2 Ml Vial) 10 mg IV NOW STA Stop: 01/29/23 16:22 Last Admin: 01/29/23 16:52 Dose: 10 mg Documented By: ACC Ondansetron HCl (Ondansetron Inj 2 Mg/Ml 2 Ml Vial) 4 mg IV NOW STA Stop: 01/29/23 14:36 Last Admin: 01/29/23 15:11 Dose: 4 mg Documented By: BMK Medical Decision Making Differential Diagnosis Differential diagnosis includes UC flare, C. difficile, viral diarrheal illness, Giardia, O&P infection, colitis, dehydration, abdominal abscess, abdominal perforation, UTI, pyelonephritis, or others. Laboratory Data Attestation: I reviewed the patient's lab results. 01/29/23 14:56 01/29/23 14:56 Lab Results 01/29/23 01/29/23 01/29/23 Range/Units 14:55 14:56 14:56 WBC 4.53 L (4.8-10.8) K/ul RBC 4.43 (4.20-5.40) M/uL Hgb 13.9 (12.0-16.0) g/dl Hct 37.8 (37.0-47.0) % MCV 85.3 (80.0-100.0) fL MCH 31.4 (25.0-34.0) pg MCHC 36.8 H (32.0-36.0) g/dL RDW Std Deviation 38.4 (36.4-46.3) fL RDW Coeff of James 12.5 (11.5-14.5) % Plt Count 212 (130-400) K/uL MPV 10.9 (9.4-12.4) fL Immature Gran % (Auto) 0.2 % Neut % (Auto) 55.4 % Lymph % (Auto) 29.8 % Parker % (Auto) 12.6 % Eos % (Auto) 1.3 % Baso % (Auto) 0.7 % Neut # (Auto) 2.51 (1.40-6.50) K/uL Lymph # (Auto) 1.35 (1.2-3.4) K/uL Parker # (Auto) 0.57 (0.11-0.59) K/uL Eos # (Auto) 0.06 (0-0.50) K/uL Baso # (Auto) 0.03 (0-0.2) K/uL Immature Gran # (Auto) 0.01 (0.01-0.20) K/uL ESR 33 H (0-30) mm/hr PT (9.0-12.0) Seconds INR (0.9-1.1) APTT (21.0-31.0) Seconds PTT Ratio Sodium (136-145) mmol/L Potassium (3.5-5.1) mmol/L Chloride (98-107) mmol/L Carbon Dioxide (21-32) mmol/L Anion Gap (3-11) BUN (6-23) mg/dl Creatinine (0.6-1.2) mg/dl Est Cr Clr Drug Dosing ml/min Est GFR ( Amer) ml/min Est GFR (Non-Af Amer) ml/min BUN/Creatinine Ratio (10-20) Glucose (70-99(Fasting)) mg/dl Lactate (0.4-2.0) mmol/L Calcium (8.6-10.3) mg/dl Total Bilirubin (0.2-1.0) mg/dl AST (13-39) U/L ALT (7-52) U/L Alkaline Phosphatase (34-104) U/L C-Reactive Protein (0-0.5) mg/dl Total Protein (6.0-8.3) gm/dl Albumin (3.4-5.0) gm/dl Globulin (2.5-4.0) gm/dl Albumin/Globulin Ratio (0.9-2) Lipase (11-82) U/L Urine Color Yellow Urine Appearance Cloudy A (Clear) Urine pH 5.5 (4.5-7.5) Ur Specific [place] 1.014 (1.000-1.030) Urine Protein Trace H (Negative) Urine Glucose (UA) Negative (Negative) Urine Ketones 4+ H (Negative) Urine Blood 1+ H (Negative) Urine Nitrite Negative (Negative) Urine Bilirubin Negative (Negative) Urine Urobilinogen Negative (Negative) Ur Leukocyte Esterase 2+ H (Negative) Urine WBC (Auto) >30 H (0-5) /hpf Urine RBC (Auto) 0-4 (0-4) /hpf U Hyaline Cast (Auto) 5-10 H (0-5) /lpf U Epithel Cells (Auto) >30 H (0-5) /lpf Urine Bacteria (Auto) Negative (Negative) Stl C. diff Tox B Gene (Neg) SARS-CoV-2, RNA, NAAT (NEGATIVE) 01/29/23 01/29/23 01/29/23 Range/Units 14:56 14:56 14:57 WBC (4.8-10.8) K/ul RBC (4.20-5.40) M/uL Hgb (12.0-16.0) g/dl Hct (37.0-47.0) % MCV (80.0-100.0) fL MCH (25.0-34.0) pg MCHC (32.0-36.0) g/dL RDW Std Deviation (36.4-46.3) fL RDW Coeff of James (11.5-14.5) % Plt Count (130-400) K/uL MPV (9.4-12.4) fL Immature Gran % (Auto) % Neut % (Auto) % Lymph % (Auto) % Parker % (Auto) % Eos % (Auto) % Baso % (Auto) % Neut # (Auto) (1.40-6.50) K/uL Lymph # (Auto) (1.2-3.4) K/uL Parker # (Auto) (0.11-0.59) K/uL Eos # (Auto) (0-0.50) K/uL Baso # (Auto) (0-0.2) K/uL Immature Gran # (Auto) (0.01-0.20) K/uL ESR (0-30) mm/hr PT 11.9 (9.0-12.0) Seconds INR 1.1 (0.9-1.1) APTT 28.5 (21.0-31.0) Seconds PTT Ratio 1.0 Sodium 138 (136-145) mmol/L Potassium 3.3 L (3.5-5.1) mmol/L Chloride 98 (98-107) mmol/L Carbon Dioxide 25 (21-32) mmol/L Anion Gap 15 H (3-11) BUN 2 L (6-23) mg/dl Creatinine 0.72 (0.6-1.2) mg/dl Est Cr Clr Drug Dosing 88.7 ml/min Est GFR ( Amer) 106.2 ml/min Est GFR (Non-Af Amer) 91.7 ml/min BUN/Creatinine Ratio 2.8 L (10-20) Glucose 79 (70-99(Fasting)) mg/dl Lactate (0.4-2.0) mmol/L Calcium 9.5 (8.6-10.3) mg/dl Total Bilirubin 0.6 (0.2-1.0) mg/dl AST 20 (13-39) U/L ALT 21 (7-52) U/L Alkaline Phosphatase 67 (34-104) U/L C-Reactive Protein 2.39 H (0-0.5) mg/dl Total Protein 7.2 (6.0-8.3) gm/dl Albumin 4.3 (3.4-5.0) gm/dl Globulin 2.9 (2.5-4.0) gm/dl Albumin/Globulin Ratio 1.5 (0.9-2) Lipase 14 (11-82) U/L Urine Color Urine Appearance (Clear) Urine pH (4.5-7.5) Ur Specific [place] (1.000-1.030) Urine Protein (Negative) Urine Glucose (UA) (Negative) Urine Ketones (Negative) Urine Blood (Negative) Urine Nitrite (Negative) Urine Bilirubin (Negative) Urine Urobilinogen (Negative) Ur Leukocyte Esterase (Negative) Urine WBC (Auto) (0-5) /hpf Urine RBC (Auto) (0-4) /hpf U Hyaline Cast (Auto) (0-5) /lpf U Epithel Cells (Auto) (0-5) /lpf Urine Bacteria (Auto) (Negative) Stl C. diff Tox B Gene (Neg) SARS-CoV-2, RNA, NAAT NEGATIVE (NEGATIVE) 01/29/23 01/29/23 Range/Units 14:58 17:45 WBC (4.8-10.8) K/ul RBC (4.20-5.40) M/uL Hgb (12.0-16.0) g/dl Hct (37.0-47.0) % MCV (80.0-100.0) fL MCH (25.0-34.0) pg MCHC (32.0-36.0) g/dL RDW Std Deviation (36.4-46.3) fL RDW Coeff of James (11.5-14.5) % Plt Count (130-400) K/uL MPV (9.4-12.4) fL Immature Gran % (Auto) % Neut % (Auto) % Lymph % (Auto) % Parker % (Auto) % Eos % (Auto) % Baso % (Auto) % Neut # (Auto) (1.40-6.50) K/uL Lymph # (Auto) (1.2-3.4) K/uL Parker # (Auto) (0.11-0.59) K/uL Eos # (Auto) (0-0.50) K/uL Baso # (Auto) (0-0.2) K/uL Immature Gran # (Auto) (0.01-0.20) K/uL ESR (0-30) mm/hr PT (9.0-12.0) Seconds INR (0.9-1.1) APTT (21.0-31.0) Seconds PTT Ratio Sodium (136-145) mmol/L Potassium (3.5-5.1) mmol/L Chloride (98-107) mmol/L Carbon Dioxide (21-32) mmol/L Anion Gap (3-11) BUN (6-23) mg/dl Creatinine (0.6-1.2) mg/dl Est Cr Clr Drug Dosing ml/min Est GFR ( Amer) ml/min Est GFR (Non-Af Amer) ml/min BUN/Creatinine Ratio (10-20) Glucose (70-99(Fasting)) mg/dl Lactate 1.2 (0.4-2.0) mmol/L Calcium (8.6-10.3) mg/dl Total Bilirubin (0.2-1.0) mg/dl AST (13-39) U/L ALT (7-52) U/L Alkaline Phosphatase (34-104) U/L C-Reactive Protein (0-0.5) mg/dl Total Protein (6.0-8.3) gm/dl Albumin (3.4-5.0) gm/dl Globulin (2.5-4.0) gm/dl Albumin/Globulin Ratio (0.9-2) Lipase (11-82) U/L Urine Color Urine Appearance (Clear) Urine pH (4.5-7.5) Ur Specific [place] (1.000-1.030) Urine Protein (Negative) Urine Glucose (UA) (Negative) Urine Ketones (Negative) Urine Blood (Negative) Urine Nitrite (Negative) Urine Bilirubin (Negative) Urine Urobilinogen (Negative) Ur Leukocyte Esterase (Negative) Urine WBC (Auto) (0-5) /hpf Urine RBC (Auto) (0-4) /hpf U Hyaline Cast (Auto) (0-5) /lpf U Epithel Cells (Auto) (0-5) /lpf Urine Bacteria (Auto) (Negative) Stl C. diff Tox B Gene Negative Cdiff Gene (Neg) SARS-CoV-2, RNA, NAAT (NEGATIVE) MDM Narrative I examined the patient. I reviewed the patient's visit from 01/25/2023. An IV lock was placed and labs were drawn. She was given a total of 2 L normal saline solution bolus. She was given Zofran 4 mg IV followed by Reglan 10 mg IV for nausea. She declined any medication for pain while in the emergency department. White blood cell count stable at 4.53. Hemoglobin normal at 13.9. Platelet count normal. ESR elevated at 33 with CRP elevated at 2.39. Lactate was normal. Potassium 3.3 and anion gap 15, but CMP otherwise essentially normal. Lipase was normal. COVID was negative. Urinalysis with trace protein, 4+ ketones, 1+ blood, 2+ leukocyte Estrace, greater than 30 white blood cells, greater than 30 epithelial cells, and no bacteria which is similar, but slightly improved from her previous urinalysis. The patient's urine culture from 01/25/2023 showed 3 types of organisms present, all moderate counts, probable skin angus. Therefore, we will hold on treating for UTI at this time pending repeat culture results. I do not feel that repeat CT scan is needed at this time as the patient has had no change in her abdominal pain or tenderness since her CT scan on 01/25/2023 per patient. She has been afebrile. The patient was unable to give a stool sample while in the emergency department, but upon dictation of this chart the patient's stool studies after admission were reviewed. Stool bio fire was negative and C. difficile was negative. Fecal calprotectin is still pending. I spoke with REINA Jackson who typically sees the patient in the office via [facility] [place] text. She states that the patient has really been struggling outpatient because of treatment failures and feels that she may benefit from inpatient management. I spoke with Dr. Mishra of [facility] who is on-call and agrees that the patient would likely benefit from inpatient management. He recommended obtaining the results of the C. difficile prior to starting any IV steroids. If the C. difficile is negative, she can be started on Solu-Medrol 40 mg IV twice daily. He recommended admission by medicine. I spoke with the on-call hospitalist who agreed to admit the patient. Please refer to their dictation for further details. The patient's care was transferred in stable condition. Impression & Plan Ulcerative colitis, Diarrhea Discharge Plan Visit Data Chief Complaint: Diarrhea Stated Complaint: REF BY DOC, DIARRHEA ED Provider: Edgard Plasencia ED Midlevel Provider: Kayy Jones Discharge Problem: Ulcerative colitis, Diarrhea Patient Disposition: Admitted As Inpatient Condition: Good Discharge Instructions Interventions: ED Discharge Assessment Last Done: 01/29/23 20:35 Ulcerative colitis Qualifiers: Ulcerative colitis location: unspecified ulcerative colitis location Digestive disease complication type: with rectal bleeding Qualified Code(s): K51.911 - Ulcerative colitis, unspecified with rectal bleeding Diarrhea Qualifiers: Diarrhea type: unspecified type Qualified Code(s): R19.7 - Diarrhea, unspecified
[2023-01-29] MEDS ORDERED: ONDANSETRON INJ 2 MG/ML 2 ML VIAL IV STA (14:35)
[2023-01-29] MEDS ORDERED: SODIUM CHLORIDE 0.9% 1000ML 1,000 ML IV STA (14:35)
[2023-01-29 15:18] LABS: Appearance Urine Cloudy (Clear); Bacteria Urine Automated Negative (Negative); Bilirubin Urine Negative (Negative); Blood Urine 1+ (Negative); Color Urine Yellow; Epithelial Cell Urine Auto >30 /lpf (0-5); Glucose Urine UA Negative (Negative); Ketones Urine 4+ (Negative); Leukocyte Esterase Urine 2+ (Negative); Nitrite Urine Negative (Negative); Protein Urine Trace (Negative); RBC Urine Automated 0-4 /hpf (0-4); Specific Gravity Urine 1.014 (1.000-1.030); Urobilinogen Urine Negative (Negative); WBC Urine Automated >30 /hpf (0-5); pH Urine 5.5 (4.5-7.5)
[2023-01-29 15:23] LABS: Basophils # (auto) 0.03 K/uL (0-0.2); Basophils % (auto) 0.7 %; Eosinophils # (auto) 0.06 K/uL (0-0.50); Eosinophils % (auto) 1.3 %; Hematocrit (blood only) 37.8 % (37.0-47.0); Hemoglobin 13.9 g/dl (12.0-16.0); Immature Granulocytes # (auto) 0.01 K/uL (0.01-0.20); Immature Granulocytes % (auto) 0.2 %; Lymphocytes # (auto) 1.35 K/uL (1.2-3.4); Lymphocytes % (auto) 29.8 %; Mean Corpuscular Hemoglobin 31.4 pg (25.0-34.0); Mean Corpuscular Hgb Conc 36.8 g/dL (32.0-36.0); Mean Corpuscular Volume 85.3 fL (80.0-100.0); Mean Platelet Volume 10.9 fL (9.4-12.4); Monocytes # (auto) 0.57 K/uL (0.11-0.59); Monocytes % (auto) 12.6 %; Neutrophils # (auto) 2.51 K/uL (1.40-6.50); Neutrophils % (auto) 55.4 %; Platelet Count 212 K/uL (130-400); RDW Coefficient of Variation 12.5 % (11.5-14.5); RDW Standard Deviation 38.4 fL (36.4-46.3); Red Blood Count 4.43 M/uL (4.20-5.40); White Blood Count 4.53 K/ul (4.8-10.8)
[2023-01-29 15:34] LABS: Albumin Globulin Ratio 1.5 (0.9-2); Albumin Level 4.3 gm/dl (3.4-5.0); BUN Creatinine Ratio 2.8 (10-20); Bilirubin,Total 0.6 mg/dl (0.2-1.0); C Reactive Protein 2.39 mg/dl (0-0.5); Calcium 9.5 mg/dl (8.6-10.3); Creatinine Clr Calc Pharmacy 88.7 ml/min; Est GFR (African American) 106.2 ml/min; Est GFR (Non-African American) 91.7 ml/min; Globulin 2.9 gm/dl (2.5-4.0); Potassium 3.3 mmol/L (3.5-5.1); Total Protein 7.2 gm/dl (6.0-8.3)
[2023-01-29 15:45] LABS: INR 1.1 (0.9-1.1); Partial Thromboplastin Time 28.5 Seconds (21.0-31.0); Prothrombin Time 11.9 Seconds (9.0-12.0)
[2023-01-29] MEDS ORDERED: METOCLOPRAMIDE HCL INJ 5 MG/ML 2 ML VIAL IV STA (16:21)
[2023-01-29] MEDS ORDERED: SODIUM CHLORIDE 0.9% 1000ML 1,000 ML IV ONE (16:21)
--- NOTE | 2023-01-29 18:48 | History & Physical Report ---
Date of Service January 29, 2023 Assessment & Plan (1) Ulcerative colitis with rectal bleeding: Plan: Suspected. GI recommending c. diff testing prior to starting on IV steroids. Will await C. diff testing prior to starting on Solu-medrol 40mg IV BID Consult gastroenterology for ongoing management (2) Starvation ketoacidosis: Plan: D5 added to fluids, should improve with diet and treatment for above Anion gap compensated with bicarb 25 suspect from diarrhea Plan VTE Prophyaxis - low risk Diet - regular Disposition - admit to med/surg Admission and Anticipated Discharge Date Admission Date: January 29, 2023 History of Present Illness Chief Complaint: Diarrhea Primary Care Provider: Charlee Severino MD Sophia Boothe is a 57 year old female with ulcerative colitis who presents to the ER with diarrhea, decreased appetite and generalized weakness. She reports ongoing watery diarrhea for the last moth with associated nausea and cramping. She is not passing much each bowel movement but having up to 25 bowel movements a day. She is currently taking Entyvio every 4 weeks. She was last on a budesonide taper 1 month ago and reports steroids usually works for her but she is unclear why her manager line has not start this again on this occasion. She was seen recently in the ER with the same symptoms on January [address] showing non-specific colitis. She was also diagnosed with a UTI and was taking a course of cefdinir although had no specific symptoms of this and urine culture subsequently grew mixed angus. ER provider discussed with her manager line Megan HUANG and recommend inpatient management for this. Allergies Allergy/AdvReac Type Severity Reaction Status Date / Time No Known Allergies Allergy Verified 01/29/23 16:43 Home Medications Medication Instructions Recorded Confirmed Type acetaminophen 500 mg capsule 1,000 mg PO HS PRN Sleep 12/03/20 01/29/23 History risedronate 150 mg tablet 150 mg PO Q30D osteoporosis 12/03/20 01/29/23 History rosuvastatin 5 mg tablet 5 mg PO HS 11/23/21 01/29/23 History vedolizumab 300 mg intravenous 300 mg IV Q30D 09/23/22 01/29/23 History solution (Entyvio) cefdinir 300 mg capsule 300 mg PO BID 5 days #10 caps 01/25/23 01/29/23 Rx escitalopram oxalate 20 mg tablet 10 mg PO QPM 01/25/23 01/29/23 History ondansetron 4 mg disintegrating 4 mg PO Q8H PRN nausea and 01/25/23 01/29/23 Rx tablet vomiting #14 tabs tirzepatide 10 mg/0.5 mL 10 mg subcut WE 01/29/23 01/29/23 History subcutaneous pen injector (Dane) trazodone 50 mg tablet 25 mg PO HS 01/29/23 01/29/23 History Past Med/Surg History Medical History Anxiety History of COVID-19 beginning 2021, home test, mild symptoms>resolved Hx of flexible sigmoidoscopy Hyperlipidemia IBS (irritable bowel syndrome) Osteoporosis Prediabetes Sleep apnea CPAP Surgical History Hx of appendectomy Hx of colonoscopy Social History Smoking Status: Former smoker Second Hand Exposure: No; Do You Dip or Chew Tobacco: No; Hx Alcohol Use: No Hx Substance Use: No Preferred Language: Mongolian Communication Ability: Effective Land Title Examiner Required: No Beliefs That Will Affect Care: None Current Living Situation: Significant Other Current Living Situation Comment: roommate Other Information That Helps Us Care for You: No Feels Safe at Home: Yes Safety Concerns: Feels Safe At This Time Assistive Devices: Glasses Review of Systems Review of Systems: All systems reviewed & are unremarkable except as noted in HPI & below Physical Exam Constitutional: WD/WN, vitals as above ENMT: external ear and nose normal, oropharynx normal Respiratory: normal respiratory effort, lungs clear to auscultation Cardiovascular: RRR, no murmur, no edema Gastrointestinal (Abdomen): normal bowel sounds, soft, nontender, no hepatosplenomegaly Musculoskeletal: no cyanosis or clubbing, extremities motor strength 5/5 Skin: no rashes, warm and dry Psychiatric: A+Ox3, euthymic affect Results & Data Results & Data Vital Signs (Past 12 Hours) Vital Signs Temp Pulse Pulse Resp BP BP Pulse Ox 01/29/23 16:00 88 129/76 97 01/29/23 14:35 86 18 123/66 94 01/29/23 14:35 95 01/29/23 13:37 36.2 C L 94 H 20 132/90 98 O2 Del Method 01/29/23 16:00 01/29/23 14:35 Room Air 01/29/23 14:35 Room Air 01/29/23 13:37 Room Air Laboratory Results Abnormal lab results 01/29/23 01/29/23 01/29/23 Range/Units 14:55 14:56 14:56 WBC 4.53 L (4.8-10.8) K/ul MCHC 36.8 H (32.0-36.0) g/dL ESR 33 H (0-30) mm/hr Potassium (3.5-5.1) mmol/L Anion Gap (3-11) BUN (6-23) mg/dl BUN/Creatinine Ratio (10-20) C-Reactive Protein (0-0.5) mg/dl Urine Appearance Cloudy A (Clear) Urine Protein Trace H (Negative) Urine Ketones 4+ H (Negative) Urine Blood 1+ H (Negative) Ur Leukocyte Esterase 2+ H (Negative) Urine WBC (Auto) >30 H (0-5) /hpf U Hyaline Cast (Auto) 5-10 H (0-5) /lpf U Epithel Cells (Auto) >30 H (0-5) /lpf 01/29/23 Range/Units 14:56 WBC (4.8-10.8) K/ul MCHC (32.0-36.0) g/dL ESR (0-30) mm/hr Potassium 3.3 L (3.5-5.1) mmol/L Anion Gap 15 H (3-11) BUN 2 L (6-23) mg/dl BUN/Creatinine Ratio 2.8 L (10-20) C-Reactive Protein 2.39 H (0-0.5) mg/dl Urine Appearance (Clear) Urine Protein (Negative) Urine Ketones (Negative) Urine Blood (Negative) Ur Leukocyte Esterase (Negative) Urine WBC (Auto) (0-5) /hpf U Hyaline Cast (Auto) (0-5) /lpf U Epithel Cells (Auto) (0-5) /lpf Medications Administered ER Medications Given: NSS 1L bolus Ondansetron 4mg IV NSS 1L bolus Metoclopramide 10mg IV ECG Rate (beats per minute): 83 Rhythm: normal sinus Findings: no acute ischemic change Comparison ECG Date: no prior available Code Status & VTE Plan Code Status Full VTE Prophylaxis Plan VTE Prophylaxis will be ordered: Yes PG Care Time/CCT Total # of Minutes Spent Total Time Spent with Patient: Total time spent is greater than 50% in coordination of care (as documented) at patient's floor/unit and/or counseling patient: Coding Level of Care Code 95994 INT INP/OBS CARE 2/55MIN Diagnoses Ulcerative colitis with rectal bleeding K51.911 Starvation ketoacidosis T73.0XXA; E87.29
[2023-01-29] MEDS ORDERED: ONDANSETRON INJ 2 MG/ML 2 ML VIAL IV PRN (20:35)
[2023-01-29] MEDS ORDERED: ACETAMINOPHEN 325 MG TAB PO PRN (20:35)
[2023-01-29 21:22] LABS: Adenovirus F 40/41 PCR Not Detected (NotDetected); Astrovirus PCR Not Detected (NotDetected); Campylobacter PCR Not Detected (NotDetected); Cryptosporidium PCR Not Detected (NotDetected); Cyclospora cayetanensis PCR Not Detected (NotDetected); Entamoeba histolytica PCR Not Detected (NotDetected); Enteroaggregative E.coli(EAEC) Not Detected (NotDetected); Enteropathogenic E.coli (EPEC) Not Detected (NotDetected); Enterotoxigenic E.coli (ETEC) Not Detected (NotDetected); Giardia lamblia PCR Not Detected (NotDetected); Norovirus GI/GII PCR Not Detected (NotDetected); Plesiomonas shigelloides PCR Not Detected (NotDetected); Rotavirus A PCR Not Detected (NotDetected); Salmonella PCR Not Detected (NotDetected); Sapovirus PCR Not Detected (NotDetected); Shiga-like Toxin E.coli (STEC) Not Detected (NotDetected); Shigella/Enteroinvasive E.coli Not Detected (NotDetected); Vibrio cholerae PCR Not Detected (NotDetected); Vibrio species PCR Not Detected (NotDetected); Yersinia enterocolitica PCR Not Detected (NotDetected)
[2023-01-29] MEDS: ESCITALOPRAM OXALATE 10 MG TAB PO SCH (21:54)
[2023-01-29] MEDS: ROSUVASTATIN CALCIUM 5 MG TAB PO SCH (21:54)
[2023-01-29] MEDS: traZODone HCL 50 MG TAB PO SCH (21:55)
[2023-01-29] MEDS: D5W AND 1/2NSS + 20MEQ KCL 20 MEQ/1,000 ML BAG IV SCH (21:55)
[2023-01-30] MEDS: methylPREDNISolone 40 MG in SYRINGE 0 ML IV SCH ×3 (00:36→20:43)
[2023-01-30] MEDS ORDERED: CALCIUM CARBONATE 500 MG CHEWABLE TAB PO PRN (01:52)
[2023-01-30] MEDS: D5W AND 1/2NSS + 20MEQ KCL 20 MEQ/1,000 ML BAG IV SCH (05:16)
[2023-01-30 06:44] LABS: Basophils # (auto) 0.02 K/uL (0-0.2); Basophils % (auto) 0.5 %; Eosinophils # (auto) 0.01 K/uL (0-0.50); Eosinophils % (auto) 0.2 %; Hematocrit (blood only) 37.2 % (37.0-47.0); Hemoglobin 13.6 g/dl (12.0-16.0); Immature Granulocytes # (auto) 0.03 K/uL (0.01-0.20); Immature Granulocytes % (auto) 0.7 %; Lymphocytes % (auto) 16.8 %; Mean Corpuscular Hemoglobin 31.1 pg (25.0-34.0); Mean Corpuscular Hgb Conc 36.6 g/dL (32.0-36.0); Mean Corpuscular Volume 84.9 fL (80.0-100.0); Mean Platelet Volume 10.9 fL (9.4-12.4); Monocytes % (auto) 2.4 %; Neutrophils % (auto) 79.4 %; Platelet Count 196 K/uL (130-400); RDW Coefficient of Variation 12.2 % (11.5-14.5); RDW Standard Deviation 37.3 fL (36.4-46.3); Red Blood Count 4.38 M/uL (4.20-5.40); White Blood Count 4.16 K/ul (4.8-10.8)
[2023-01-30 07:12] LABS: Alanine Aminotransferase 17 U/L (7-52); Albumin Globulin Ratio 1.5 (0.9-2); Albumin Level 3.8 gm/dl (3.4-5.0); Alkaline Phosphatase 60 U/L (34-104); Anion Gap 9 (3-11); Aspartate Aminotransferase 15 U/L (13-39); Bilirubin,Total 0.4 mg/dl (0.2-1.0); Blood Urea Nitrogen < 2 mg/dl (6-23); Calcium 8.5 mg/dl (8.6-10.3); Carbon Dioxide 25 mmol/L (21-32); Chloride 105 mmol/L (98-107); Creatinine Clr Calc Pharmacy 103.2 ml/min; Est GFR (African American) 114.4 ml/min; Est GFR (Non-African American) 98.7 ml/min; Globulin 2.6 gm/dl (2.5-4.0); Glucose 183 mg/dl (70-99(Fasting)); Magnesium 1.8 mg/dl (1.7-2.4); Sodium 139 mmol/L (136-145); Total Protein 6.4 gm/dl (6.0-8.3)
--- NOTE | 2023-01-30 08:12 | Hospitalist Progress Note ---
Date of Service January 30, 2023 Assessment & Plan (1) Ulcerative colitis with rectal bleeding: Plan: Suspected. Recent taper budesonide in prior months for UC w/ [facility]. Recent CTAP January 25 in ER w/o bowel obstruction. noting mild thickening throughout majority of large bowel and may be secondary to partial distension vs mild nonspecific colitis. ESR/CRP elevated Cdiff/PCR stool testing negative Placed on IV Methylprednisolone. Will need slow taper at discharge Protonix IVP daily -- discussed likely need for daily vs BID dosing given gastritis symptoms/reflux reported. Likely from steroid use. Denies any use of NSAIDs Tolerating diet this morning for first time in about a month. IVF decreased to 75cc/hr given dehydration on exam but improving. Will dc later today given tolerance of PO intake and monitor need for additional supplementation. GI on consult -- appreciate recs. Recs for Uceris 9mg PO daily x8 weeks if covered by insurance or 8 week taper prednisone starting at 40mg and decreasing by 5mg daily. Will need to reschedule Entyvio infusion as directed by GI Patient does have c-scope arranged for end of month with [facility]. Will need close f/u at discharge. Stool calprotectin level obtained- pending Continued inpatient stay - possible dc in next 24-48 hours (2) Starvation ketoacidosis: Plan: D5 added to fluids Anion gap resolved, suspect 2nd to diarrhea over past month IVF ordered for additional IVF given mild dehydration on exam but tolerating diet and will dc this afternoon if no issues Reflux: symptoms suspicious for such. Likely from steroid use/possible gastritis.Reports having to take Tums recently for symptoms. No NSAID use reported (she said she does NOT take any of those to prevent bleeding risk) PPI ordered - consider continuing at discharge. Can also consider increasing to BID if needed for additional control while on higher dose steroids Depression: Continue escitalopram Plan continued inpatient stay, IV steroids possible dc next 24-48 hours Will have moralez check Uceris Admission and Anticipated Discharge Date Admission Date: January 29, 2023 Supervising Physician Co-Signing Physician Notes The patient was not seen by me. The chart was reviewed. Case discussed with ALEXANDER Reed. Agree with assessment and plan Subjective Eval this morning, doing better than admission. Had been having decreased PO intake for about a month/lower abdominal cramping/pain/nausea. Some bright red spot of blood in bowels day prior from continued diarrhea. Diarrhea has slowed. Tolerated breakfast as first meal in about a month and doing alright. Given Protonix this morning for reflux and reports she had been having some ongoing reflux and wonders if she should be on this medication. Discussed at least once daily while on steroids. Seen by GI this morning. She has c-scope at end of month to discuss possible need for surgery. Currently on Entyvio and due for her dose. Discussed holding off for now w/ active infection and will arrange close f/u [facility] at discharge. Discussed monitoring/response to therapy with steroids and possible dc in next 24-48 hours pending her progress. Review of Systems Review of Systems: All systems reviewed & are unremarkable except as noted in HPI & below Physical Exam Physical Exam: General: WD/WN obese female resting in bed, NAD HEENT: head normocephalic, atraumatic, mm slightly dry (reported improved), trachea midline Resp: CTA, no w/c/r, on room air CV: RRR, no significant m/r/g, no calf tenderness GI: +BS throughout, mild tenderness lower abdomen without, guarding/rigidity : no knight MSK/Neuro: no focal deficits, no slurred speech, follows commands Psych: AOx3, cooperative and pleasant Results & Data Results & Data Vital Signs (Past 12 Hours) Vital Signs Temp Pulse Resp BP BP Pulse Ox O2 Del Method 01/30/23 07:31 36.6 C 84 16 136/79 95 Room Air 01/30/23 00:42 36.8 C 88 16 131/73 96 Room Air 01/29/23 23:37 36.7 C 95 H 18 156/88 H 97 Room Air 01/29/23 20:45 80 16 136/71 98 Room Air Laboratory Results 01/30/23 01/30/23 01/30/23 Range/Units 06:25 06:25 06:25 WBC 4.16 L (4.8-10.8) K/ul RBC 4.38 (4.20-5.40) M/uL Hgb 13.6 (12.0-16.0) g/dl Hct 37.2 (37.0-47.0) % MCV 84.9 (80.0-100.0) fL MCH 31.1 (25.0-34.0) pg MCHC 36.6 H (32.0-36.0) g/dL RDW Std Deviation 37.3 (36.4-46.3) fL RDW Coeff of James 12.2 (11.5-14.5) % Plt Count 196 (130-400) K/uL MPV 10.9 (9.4-12.4) fL Immature Gran % (Auto) 0.7 % Neut % (Auto) 79.4 % Lymph % (Auto) 16.8 % Weber % (Auto) 2.4 % Eos % (Auto) 0.2 % Baso % (Auto) 0.5 % Neut # (Auto) 3.30 (1.40-6.50) K/uL Lymph # (Auto) 0.70 L (1.2-3.4) K/uL Weber # (Auto) 0.10 L (0.11-0.59) K/uL Eos # (Auto) 0.01 (0-0.50) K/uL Baso # (Auto) 0.02 (0-0.2) K/uL Immature Gran # (Auto) 0.03 (0.01-0.20) K/uL ESR (0-30) mm/hr PT (9.0-12.0) Seconds INR (0.9-1.1) APTT (21.0-31.0) Seconds PTT Ratio Sodium 139 (136-145) mmol/L Potassium 4.0 D (3.5-5.1) mmol/L Chloride 105 (98-107) mmol/L Carbon Dioxide 25 (21-32) mmol/L Anion Gap 9 (3-11) BUN < 2 L (6-23) mg/dl Creatinine 0.62 (0.6-1.2) mg/dl Est Cr Clr Drug Dosing 103.2 ml/min Est GFR ( Amer) 114.4 ml/min Est GFR (Non-Af Amer) 98.7 ml/min BUN/Creatinine Ratio TNP (10-20) Glucose 183 H (70-99(Fasting)) mg/dl Lactate (0.4-2.0) mmol/L Calcium 8.5 L (8.6-10.3) mg/dl Magnesium 1.8 (1.7-2.4) mg/dl Total Bilirubin 0.4 (0.2-1.0) mg/dl AST 15 (13-39) U/L ALT 17 (7-52) U/L Alkaline Phosphatase 60 (34-104) U/L C-Reactive Protein (0-0.5) mg/dl Total Protein 6.4 (6.0-8.3) gm/dl Albumin 3.8 (3.4-5.0) gm/dl Globulin 2.6 (2.5-4.0) gm/dl Albumin/Globulin Ratio 1.5 (0.9-2) Lipase (11-82) U/L Urine Color Urine Appearance (Clear) Urine pH (4.5-7.5) Ur Specific Aldrich (1.000-1.030) Urine Protein (Negative) Urine Glucose (UA) (Negative) Urine Ketones (Negative) Urine Blood (Negative) Urine Nitrite (Negative) Urine Bilirubin (Negative) Urine Urobilinogen (Negative) Ur Leukocyte Esterase (Negative) Urine WBC (Auto) (0-5) /hpf Urine RBC (Auto) (0-4) /hpf U Hyaline Cast (Auto) (0-5) /lpf U Epithel Cells (Auto) (0-5) /lpf Urine Bacteria (Auto) (Negative) Stool Calprotectin Stl C. cayetanensis PCR (NotDetected) Stool Rotavirus A PCR (NotDetected) Stl Adenov F 40/41 PCR (NotDetected) Stool Astrovirus (PCR) (NotDetected) Stool Campylobacter PCR (NotDetected) Stl C. diff Tox B Gene (Neg) Stool Cryptosporidium PCR (NotDetected) Stl E.coli Shiga Tox PCR (NotDetected) Stl Enterotoxigenic E PCR (NotDetected) Stool EPEC (PCR) (NotDetected) Stool EAEC (PCR) (NotDetected) Stl E. histolytica PCR (NotDetected) Stool Giardia Lamblia PCR (NotDetected) Stool Salmonella PCR (NotDetected) Stool Sapovirus (PCR) (NotDetected) Stl P. shigelloides PCR (NotDetected) Stl Shigella/EIEC PCR (NotDetected) St Y.enterocolitica PCR (NotDetected) Stool Vibrio (PCR) (NotDetected) Stl Vibrio cholerae PCR (NotDetected) Stl Norovirus GI/GII PCR (NotDetected) Hepatitis C Ab (EIA) Pending SARS-CoV-2, RNA, NAAT (NEGATIVE) 01/29/23 01/29/23 01/29/23 Range/Units 19:14 19:14 17:45 WBC (4.8-10.8) K/ul RBC (4.20-5.40) M/uL Hgb (12.0-16.0) g/dl Hct (37.0-47.0) % MCV (80.0-100.0) fL MCH (25.0-34.0) pg MCHC (32.0-36.0) g/dL RDW Std Deviation (36.4-46.3) fL RDW Coeff of James (11.5-14.5) % Plt Count (130-400) K/uL MPV (9.4-12.4) fL Immature Gran % (Auto) % Neut % (Auto) % Lymph % (Auto) % Weber % (Auto) % Eos % (Auto) % Baso % (Auto) % Neut # (Auto) (1.40-6.50) K/uL Lymph # (Auto) (1.2-3.4) K/uL Weber # (Auto) (0.11-0.59) K/uL Eos # (Auto) (0-0.50) K/uL Baso # (Auto) (0-0.2) K/uL Immature Gran # (Auto) (0.01-0.20) K/uL ESR (0-30) mm/hr PT (9.0-12.0) Seconds INR (0.9-1.1) APTT (21.0-31.0) Seconds PTT Ratio Sodium (136-145) mmol/L Potassium (3.5-5.1) mmol/L Chloride (98-107) mmol/L Carbon Dioxide (21-32) mmol/L Anion Gap (3-11) BUN (6-23) mg/dl Creatinine (0.6-1.2) mg/dl Est Cr Clr Drug Dosing ml/min Est GFR ( Amer) ml/min Est GFR (Non-Af Amer) ml/min BUN/Creatinine Ratio (10-20) Glucose (70-99(Fasting)) mg/dl Lactate (0.4-2.0) mmol/L Calcium (8.6-10.3) mg/dl Magnesium (1.7-2.4) mg/dl Total Bilirubin (0.2-1.0) mg/dl AST (13-39) U/L ALT (7-52) U/L Alkaline Phosphatase (34-104) U/L C-Reactive Protein (0-0.5) mg/dl Total Protein (6.0-8.3) gm/dl Albumin (3.4-5.0) gm/dl Globulin (2.5-4.0) gm/dl Albumin/Globulin Ratio (0.9-2) Lipase (11-82) U/L Urine Color Urine Appearance (Clear) Urine pH (4.5-7.5) Ur Specific Aldrich (1.000-1.030) Urine Protein (Negative) Urine Glucose (UA) (Negative) Urine Ketones (Negative) Urine Blood (Negative) Urine Nitrite (Negative) Urine Bilirubin (Negative) Urine Urobilinogen (Negative) Ur Leukocyte Esterase (Negative) Urine WBC (Auto) (0-5) /hpf Urine RBC (Auto) (0-4) /hpf U Hyaline Cast (Auto) (0-5) /lpf U Epithel Cells (Auto) (0-5) /lpf Urine Bacteria (Auto) (Negative) Stool Calprotectin Pending Stl C. cayetanensis PCR Not Detected (NotDetected) Stool Rotavirus A PCR Not Detected (NotDetected) Stl Adenov F 40/41 PCR Not Detected (NotDetected) Stool Astrovirus (PCR) Not Detected (NotDetected) Stool Campylobacter PCR Not Detected (NotDetected) Stl C. diff Tox B Gene Negative Cdiff Gene (Neg) Stool Cryptosporidium PCR Not Detected (NotDetected) Stl E.coli Shiga Tox PCR Not Detected (NotDetected) Stl Enterotoxigenic E PCR Not Detected (NotDetected) Stool EPEC (PCR) Not Detected (NotDetected) Stool EAEC (PCR) Not Detected (NotDetected) Stl E. histolytica PCR Not Detected (NotDetected) Stool Giardia Lamblia PCR Not Detected (NotDetected) Stool Salmonella PCR Not Detected (NotDetected) Stool Sapovirus (PCR) Not Detected (NotDetected) Stl P. shigelloides PCR Not Detected (NotDetected) Stl Shigella/EIEC PCR Not Detected (NotDetected) St Y.enterocolitica PCR Not Detected (NotDetected) Stool Vibrio (PCR) Not Detected (NotDetected) Stl Vibrio cholerae PCR Not Detected (NotDetected) Stl Norovirus GI/GII PCR Not Detected (NotDetected) Hepatitis C Ab (EIA) SARS-CoV-2, RNA, NAAT (NEGATIVE) 01/29/23 01/29/23 01/29/23 Range/Units 14:58 14:57 14:56 WBC (4.8-10.8) K/ul RBC (4.20-5.40) M/uL Hgb (12.0-16.0) g/dl Hct (37.0-47.0) % MCV (80.0-100.0) fL MCH (25.0-34.0) pg MCHC (32.0-36.0) g/dL RDW Std Deviation (36.4-46.3) fL RDW Coeff of James (11.5-14.5) % Plt Count (130-400) K/uL MPV (9.4-12.4) fL Immature Gran % (Auto) % Neut % (Auto) % Lymph % (Auto) % Weber % (Auto) % Eos % (Auto) % Baso % (Auto) % Neut # (Auto) (1.40-6.50) K/uL Lymph # (Auto) (1.2-3.4) K/uL Weber # (Auto) (0.11-0.59) K/uL Eos # (Auto) (0-0.50) K/uL Baso # (Auto) (0-0.2) K/uL Immature Gran # (Auto) (0.01-0.20) K/uL ESR (0-30) mm/hr PT (9.0-12.0) Seconds INR (0.9-1.1) APTT (21.0-31.0) Seconds PTT Ratio Sodium 138 (136-145) mmol/L Potassium 3.3 L (3.5-5.1) mmol/L Chloride 98 (98-107) mmol/L Carbon Dioxide 25 (21-32) mmol/L Anion Gap 15 H (3-11) BUN 2 L (6-23) mg/dl Creatinine 0.72 (0.6-1.2) mg/dl Est Cr Clr Drug Dosing 88.7 ml/min Est GFR ( Amer) 106.2 ml/min Est GFR (Non-Af Amer) 91.7 ml/min BUN/Creatinine Ratio 2.8 L (10-20) Glucose 79 (70-99(Fasting)) mg/dl Lactate 1.2 (0.4-2.0) mmol/L Calcium 9.5 (8.6-10.3) mg/dl Magnesium (1.7-2.4) mg/dl Total Bilirubin 0.6 (0.2-1.0) mg/dl AST 20 (13-39) U/L ALT 21 (7-52) U/L Alkaline Phosphatase 67 (34-104) U/L C-Reactive Protein 2.39 H (0-0.5) mg/dl Total Protein 7.2 (6.0-8.3) gm/dl Albumin 4.3 (3.4-5.0) gm/dl Globulin 2.9 (2.5-4.0) gm/dl Albumin/Globulin Ratio 1.5 (0.9-2) Lipase 14 (11-82) U/L Urine Color Urine Appearance (Clear) Urine pH (4.5-7.5) Ur Specific Aldrich (1.000-1.030) Urine Protein (Negative) Urine Glucose (UA) (Negative) Urine Ketones (Negative) Urine Blood (Negative) Urine Nitrite (Negative) Urine Bilirubin (Negative) Urine Urobilinogen (Negative) Ur Leukocyte Esterase (Negative) Urine WBC (Auto) (0-5) /hpf Urine RBC (Auto) (0-4) /hpf U Hyaline Cast (Auto) (0-5) /lpf U Epithel Cells (Auto) (0-5) /lpf Urine Bacteria (Auto) (Negative) Stool Calprotectin Stl C. cayetanensis PCR (NotDetected) Stool Rotavirus A PCR (NotDetected) Stl Adenov F 40/41 PCR (NotDetected) Stool Astrovirus (PCR) (NotDetected) Stool Campylobacter PCR (NotDetected) Stl C. diff Tox B Gene (Neg) Stool Cryptosporidium PCR (NotDetected) Stl E.coli Shiga Tox PCR (NotDetected) Stl Enterotoxigenic E PCR (NotDetected) Stool EPEC (PCR) (NotDetected) Stool EAEC (PCR) (NotDetected) Stl E. histolytica PCR (NotDetected) Stool Giardia Lamblia PCR (NotDetected) Stool Salmonella PCR (NotDetected) Stool Sapovirus (PCR) (NotDetected) Stl P. shigelloides PCR (NotDetected) Stl Shigella/EIEC PCR (NotDetected) St Y.enterocolitica PCR (NotDetected) Stool Vibrio (PCR) (NotDetected) Stl Vibrio cholerae PCR (NotDetected) Stl Norovirus GI/GII PCR (NotDetected) Hepatitis C Ab (EIA) SARS-CoV-2, RNA, NAAT NEGATIVE (NEGATIVE) 01/29/23 01/29/23 01/29/23 Range/Units 14:56 14:56 14:56 WBC 4.53 L (4.8-10.8) K/ul RBC 4.43 (4.20-5.40) M/uL Hgb 13.9 (12.0-16.0) g/dl Hct 37.8 (37.0-47.0) % MCV 85.3 (80.0-100.0) fL MCH 31.4 (25.0-34.0) pg MCHC 36.8 H (32.0-36.0) g/dL RDW Std Deviation 38.4 (36.4-46.3) fL RDW Coeff of James 12.5 (11.5-14.5) % Plt Count 212 (130-400) K/uL MPV 10.9 (9.4-12.4) fL Immature Gran % (Auto) 0.2 % Neut % (Auto) 55.4 % Lymph % (Auto) 29.8 % Weber % (Auto) 12.6 % Eos % (Auto) 1.3 % Baso % (Auto) 0.7 % Neut # (Auto) 2.51 (1.40-6.50) K/uL Lymph # (Auto) 1.35 (1.2-3.4) K/uL Weber # (Auto) 0.57 (0.11-0.59) K/uL Eos # (Auto) 0.06 (0-0.50) K/uL Baso # (Auto) 0.03 (0-0.2) K/uL Immature Gran # (Auto) 0.01 (0.01-0.20) K/uL ESR 33 H (0-30) mm/hr PT 11.9 (9.0-12.0) Seconds INR 1.1 (0.9-1.1) APTT 28.5 (21.0-31.0) Seconds PTT Ratio 1.0 Sodium (136-145) mmol/L Potassium (3.5-5.1) mmol/L Chloride (98-107) mmol/L Carbon Dioxide (21-32) mmol/L Anion Gap (3-11) BUN (6-23) mg/dl Creatinine (0.6-1.2) mg/dl Est Cr Clr Drug Dosing ml/min Est GFR ( Amer) ml/min Est GFR (Non-Af Amer) ml/min BUN/Creatinine Ratio (10-20) Glucose (70-99(Fasting)) mg/dl Lactate (0.4-2.0) mmol/L Calcium (8.6-10.3) mg/dl Magnesium (1.7-2.4) mg/dl Total Bilirubin (0.2-1.0) mg/dl AST (13-39) U/L ALT (7-52) U/L Alkaline Phosphatase (34-104) U/L C-Reactive Protein (0-0.5) mg/dl Total Protein (6.0-8.3) gm/dl Albumin (3.4-5.0) gm/dl Globulin (2.5-4.0) gm/dl Albumin/Globulin Ratio (0.9-2) Lipase (11-82) U/L Urine Color Urine Appearance (Clear) Urine pH (4.5-7.5) Ur Specific Aldrich (1.000-1.030) Urine Protein (Negative) Urine Glucose (UA) (Negative) Urine Ketones (Negative) Urine Blood (Negative) Urine Nitrite (Negative) Urine Bilirubin (Negative) Urine Urobilinogen (Negative) Ur Leukocyte Esterase (Negative) Urine WBC (Auto) (0-5) /hpf Urine RBC (Auto) (0-4) /hpf U Hyaline Cast (Auto) (0-5) /lpf U Epithel Cells (Auto) (0-5) /lpf Urine Bacteria (Auto) (Negative) Stool Calprotectin Stl C. cayetanensis PCR (NotDetected) Stool Rotavirus A PCR (NotDetected) Stl Adenov F 40/41 PCR (NotDetected) Stool Astrovirus (PCR) (NotDetected) Stool Campylobacter PCR (NotDetected) Stl C. diff Tox B Gene (Neg) Stool Cryptosporidium PCR (NotDetected) Stl E.coli Shiga Tox PCR (NotDetected) Stl Enterotoxigenic E PCR (NotDetected) Stool EPEC (PCR) (NotDetected) Stool EAEC (PCR) (NotDetected) Stl E. histolytica PCR (NotDetected) Stool Giardia Lamblia PCR (NotDetected) Stool Salmonella PCR (NotDetected) Stool Sapovirus (PCR) (NotDetected) Stl P. shigelloides PCR (NotDetected) Stl Shigella/EIEC PCR (NotDetected) St Y.enterocolitica PCR (NotDetected) Stool Vibrio (PCR) (NotDetected) Stl Vibrio cholerae PCR (NotDetected) Stl Norovirus GI/GII PCR (NotDetected) Hepatitis C Ab (EIA) SARS-CoV-2, RNA, NAAT (NEGATIVE) 01/29/23 Range/Units 14:55 WBC (4.8-10.8) K/ul RBC (4.20-5.40) M/uL Hgb (12.0-16.0) g/dl Hct (37.0-47.0) % MCV (80.0-100.0) fL MCH (25.0-34.0) pg MCHC (32.0-36.0) g/dL RDW Std Deviation (36.4-46.3) fL RDW Coeff of James (11.5-14.5) % Plt Count (130-400) K/uL MPV (9.4-12.4) fL Immature Gran % (Auto) % Neut % (Auto) % Lymph % (Auto) % Weber % (Auto) % Eos % (Auto) % Baso % (Auto) % Neut # (Auto) (1.40-6.50) K/uL Lymph # (Auto) (1.2-3.4) K/uL Weber # (Auto) (0.11-0.59) K/uL Eos # (Auto) (0-0.50) K/uL Baso # (Auto) (0-0.2) K/uL Immature Gran # (Auto) (0.01-0.20) K/uL ESR (0-30) mm/hr PT (9.0-12.0) Seconds INR (0.9-1.1) APTT (21.0-31.0) Seconds PTT Ratio Sodium (136-145) mmol/L Potassium (3.5-5.1) mmol/L Chloride (98-107) mmol/L Carbon Dioxide (21-32) mmol/L Anion Gap (3-11) BUN (6-23) mg/dl Creatinine (0.6-1.2) mg/dl Est Cr Clr Drug Dosing ml/min Est GFR ( Amer) ml/min Est GFR (Non-Af Amer) ml/min BUN/Creatinine Ratio (10-20) Glucose (70-99(Fasting)) mg/dl Lactate (0.4-2.0) mmol/L Calcium (8.6-10.3) mg/dl Magnesium (1.7-2.4) mg/dl Total Bilirubin (0.2-1.0) mg/dl AST (13-39) U/L ALT (7-52) U/L Alkaline Phosphatase (34-104) U/L C-Reactive Protein (0-0.5) mg/dl Total Protein (6.0-8.3) gm/dl Albumin (3.4-5.0) gm/dl Globulin (2.5-4.0) gm/dl Albumin/Globulin Ratio (0.9-2) Lipase (11-82) U/L Urine Color Yellow Urine Appearance Cloudy A (Clear) Urine pH 5.5 (4.5-7.5) Ur Specific Aldrich 1.014 (1.000-1.030) Urine Protein Trace H (Negative) Urine Glucose (UA) Negative (Negative) Urine Ketones 4+ H (Negative) Urine Blood 1+ H (Negative) Urine Nitrite Negative (Negative) Urine Bilirubin Negative (Negative) Urine Urobilinogen Negative (Negative) Ur Leukocyte Esterase 2+ H (Negative) Urine WBC (Auto) >30 H (0-5) /hpf Urine RBC (Auto) 0-4 (0-4) /hpf U Hyaline Cast (Auto) 5-10 H (0-5) /lpf U Epithel Cells (Auto) >30 H (0-5) /lpf Urine Bacteria (Auto) Negative (Negative) Stool Calprotectin Stl C. cayetanensis PCR (NotDetected) Stool Rotavirus A PCR (NotDetected) Stl Adenov F 40/41 PCR (NotDetected) Stool Astrovirus (PCR) (NotDetected) Stool Campylobacter PCR (NotDetected) Stl C. diff Tox B Gene (Neg) Stool Cryptosporidium PCR (NotDetected) Stl E.coli Shiga Tox PCR (NotDetected) Stl Enterotoxigenic E PCR (NotDetected) Stool EPEC (PCR) (NotDetected) Stool EAEC (PCR) (NotDetected) Stl E. histolytica PCR (NotDetected) Stool Giardia Lamblia PCR (NotDetected) Stool Salmonella PCR (NotDetected) Stool Sapovirus (PCR) (NotDetected) Stl P. shigelloides PCR (NotDetected) Stl Shigella/EIEC PCR (NotDetected) St Y.enterocolitica PCR (NotDetected) Stool Vibrio (PCR) (NotDetected) Stl Vibrio cholerae PCR (NotDetected) Stl Norovirus GI/GII PCR (NotDetected) Hepatitis C Ab (EIA) SARS-CoV-2, RNA, NAAT (NEGATIVE) Diagnostic Findings CTAP prior to admission from ER visit 01/25/23 IMPRESSION: 1. No bowel obstruction or pneumoperitoneum. 2. Mild wall thickening throughout the majority of the large bowel may be secondary to partial distention versus a mild nonspecific colitis. 3. Appendectomy. 4. Colonic diverticulosis. ACT 112: Negative or not required by law. PG Care Time/CCT Total # of Minutes Spent Total Time Spent with Patient: Total time spent is greater than 50% in coordination of care (as documented) at patient's floor/unit and/or counseling patient: Coding Level of Care Code 76065 SUB INP/OBS CARE 3/50MIN Diagnoses Ulcerative colitis with rectal bleeding K51.911 Starvation ketoacidosis T73.0XXA; E87.29
--- NOTE | 2023-01-30 10:01 | Gastrointestinal Consultation ---
Date of Consultation January 30, 2023 Assessment & Plan (1) Ulcerative colitis: -Continue IV Solumedrol 40 mg q 12 while hospitalized. Upon discharge would advise either Uceris 9 mg po daily x 8 weeks if covered by insurance or an 8 week Prednisone taper beginning at 40 mg daily and decreasing by 5 mg weekly. Patient should utilize a calcium & vitamin D supplement while on high dose corticosteroids when she leaves the hospital. -Patient has a colonoscopy planned for the end of the month with her primary GI at [facility]. -She will need to reschedule her missed Entyvio infusion ALYSHA. -Diet as tolerated. -She notes she will be discussing possible evaluation with [facility] IBD clinic pending results of her upcoming colonoscopy. -Stool calprotectin was obtained and will result after discharge. History of Present Illness Reason for Consultation: Ulcerative Colitis Attending Physician: Jeet Felipe MD History of Present Illness Patient is a 57 yo female who presented to the ED with diarrhea and decreased appetite. She has a history of Ulcerative Colitis managed by [facility] and notes she has struggled with managing her disease for quite some time. She has been on Humira in the past and she notes she did not respond. She now takes Entyvio 300 mg q 4 weeks. She has had ongoing watery diarrhea x 1 month (20+ episodes daily) with abdominal cramping. She presented to the ED on January [address] scan showed a non-specific colitis at that time. She notes she took Budesonide 1 month ago and this helped but since stopping the medication her symptoms have returned. She had a sigmoidoscopy in September 2022 that indicated active disease. Patient notes she has a colonoscopy scheduled at the end of this month to make decisions regarding ongoing therapy. H/H is within normal limits. Stool PCR and C diff testing negative. CRP 2.39. K within normal limits. The patient reports remarkable improvement since initiating IV Solumedrol. She notes that she was able to eat her breakfast of eggs and toast this morning without issue. She was due for an Entyvio infusion today as an outpatient. Allergies Allergy/AdvReac Type Severity Reaction Status Date / Time No Known Allergies Allergy Verified 01/29/23 16:43 Home Medications Medication Instructions Recorded Confirmed Type acetaminophen 500 mg capsule 1,000 mg PO HS PRN Sleep 12/03/20 01/29/23 History risedronate 150 mg tablet 150 mg PO Q30D osteoporosis 12/03/20 01/29/23 History rosuvastatin 5 mg tablet 5 mg PO HS 11/23/21 01/29/23 History vedolizumab 300 mg intravenous 300 mg IV Q30D 09/23/22 01/29/23 History solution (Entyvio) cefdinir 300 mg capsule 300 mg PO BID 5 days #10 caps 01/25/23 01/29/23 Rx escitalopram oxalate 20 mg tablet 10 mg PO QPM 01/25/23 01/29/23 History ondansetron 4 mg disintegrating 4 mg PO Q8H PRN nausea and 01/25/23 01/29/23 Rx tablet vomiting #14 tabs tirzepatide 10 mg/0.5 mL 10 mg subcut WE 01/29/23 01/29/23 History subcutaneous pen injector (Dane) trazodone 50 mg tablet 25 mg PO HS 01/29/23 01/29/23 History Patient History Medical History Anxiety History of COVID-19 beginning 2021, home test, mild symptoms>resolved Hx of flexible sigmoidoscopy Hyperlipidemia IBS (irritable bowel syndrome) Osteoporosis Prediabetes Sleep apnea CPAP Surgical History Hx of appendectomy Hx of colonoscopy Social History Smoking Status: Former smoker Second Hand Exposure: No; Do You Dip or Chew Tobacco: No; Hx Alcohol Use: No Hx Substance Use: No Preferred Language: Portuguese Communication Ability: Effective Director Of Music Required: No Beliefs That Will Affect Care: None Current Living Situation: Significant Other Current Living Situation Comment: roommate Other Information That Helps Us Care for You: No Feels Safe at Home: Yes Safety Concerns: Feels Safe At This Time Assistive Devices: CPAP Review of Systems Constitutional: no fever and no chills Respiratory: no cough and no dyspnea Cardiovascular: no chest pain Gastrointestinal: + diarrhea/loose stools (improving); no abdominal pain Psychiatric: no problem reported Physical Exam Constitutional: well developed Respiratory: normal respiratory effort Cardiovascular: Rate/Rhythm: regular rate Gastrointestinal (Abdomen): normal bowel sounds, soft, nontender, no hepatosplenomegaly Psychiatric: Orientation: alert and oriented x 3 Results & Data Vital Signs (Past 12 Hours) Vital Signs Temp Pulse Resp BP BP Pulse Ox O2 Del Method 01/30/23 07:31 36.6 C 84 16 136/79 95 Room Air 01/30/23 00:42 36.8 C 88 16 131/73 96 Room Air 01/29/23 23:37 36.7 C 95 H 18 156/88 H 97 Room Air PG Care Time/CCT Total # of Minutes Spent Total Time Spent with Patient: Total time spent is greater than 50% in coordination of care (as documented) at patient's floor/unit and/or counseling patient: Coding Level of Care Code 52464 IN/OBS CONSULT LVL 4,60M Diagnoses Ulcerative colitis K51.911 Digestive disease complication type: with rectal bleeding Ulcerative colitis location: unspecified ulcerative colitis location (1) Ulcerative colitis Digestive disease complication type: with rectal bleeding Ulcerative colitis location: unspecified ulcerative colitis location Qualified Code(s): K51.911 - Ulcerative colitis, unspecified with rectal bleeding
[2023-01-30] MEDS ORDERED: PANTOprazole 40 MG in SYRINGE 0 ML IV SCH ×2 (10:15→11:00)
[2023-01-30] MEDS ORDERED: D5W AND 1/2NSS + 20MEQ KCL 20 MEQ/1,000 ML BAG IV SCH (11:00)
[2023-01-30] MEDS ORDERED: methylPREDNISolone 60 MG in SYRINGE 0 ML IV SCH (12:00)
--- NOTE | 2023-01-30 12:18 | Electrocardiogram Report ---
Test Reason : Blood Pressure : / mmHG Vent. Rate : 083 BPM Atrial Rate : 083 BPM P-R Int : 186 ms QRS Dur : 092 ms QT Int : 438 ms P-R-T Axes : 065 049 080 degrees QTc Int : 514 ms Normal sinus rhythm Low voltage QRS Prolonged QT Abnormal ECG No previous ECGs available Confirmed by Oh Fernandez ([id number]) on 01/30/2023 12:17:34 PM Referred By: Megan Montana Confirmed By:Juan Fernandez
[2023-01-30] MEDS: ESCITALOPRAM OXALATE 10 MG TAB PO SCH (20:42)
[2023-01-30] MEDS: ROSUVASTATIN CALCIUM 5 MG TAB PO SCH (20:42)
[2023-01-30] MEDS: traZODone HCL 50 MG TAB PO SCH (20:44)
[2023-01-31 07:22] LABS: Hematocrit (blood only) 38.6 % (37.0-47.0); Hemoglobin 14.4 g/dl (12.0-16.0); Mean Corpuscular Hemoglobin 31.6 pg (25.0-34.0); Mean Corpuscular Hgb Conc 37.3 g/dL (32.0-36.0); Mean Corpuscular Volume 84.8 fL (80.0-100.0); Mean Platelet Volume 11.1 fL (9.4-12.4); Platelet Count 277 K/uL (130-400); RDW Coefficient of Variation 12.4 % (11.5-14.5); RDW Standard Deviation 37.1 fL (36.4-46.3); Red Blood Count 4.55 M/uL (4.20-5.40); White Blood Count 10.91 K/ul (4.8-10.8)
--- NOTE | 2023-01-31 07:26 | Discharge Summary ---
Date of Service January 31, 2023 Admission HPI Per Admitting Provider Sophia Boothe is a 57 year old female with ulcerative colitis who presents to the ER with diarrhea, decreased appetite and generalized weakness. She reports ongoing watery diarrhea for the last moth with associated nausea and cramping. She is not passing much each bowel movement but having up to 25 bowel movements a day. She is currently taking Entyvio every 4 weeks. She was last on a budesonide taper 1 month ago and reports steroids usually works for her but she is unclear why her pit shoveler has not start this again on this occasion. She was seen recently in the ER with the same symptoms on January [address] showing non-specific colitis. She was also diagnosed with a UTI and was taking a course of cefdinir although had no specific symptoms of this and urine culture subsequently grew mixed angus. ER provider discussed with her pit shoveler Megan HUANG and recommend inpatient management for this. Admission Exam Per Admitting Provider Constitutional: WD/WN, vitals as above ENMT: external ear and nose normal, oropharynx normal Respiratory: normal respiratory effort, lungs clear to auscultation Cardiovascular: RRR, no murmur, no edema Gastrointestinal (Abdomen): normal bowel sounds, soft, nontender, no hepatosplenomegaly Musculoskeletal: no cyanosis or clubbing, extremities motor strength 5/5 Skin: no rashes, warm and dry Psychiatric: A+Ox3, euthymic affect Principal Diagnosis Ulcerative Colitis, Starvation Ketoacidosis Discharge Exam General: WD/WN obese female resting in bed, NAD HEENT: head normocephalic, atraumatic, mmm, trachea midline Resp: CTA, no w/c/r, on room air CV: RRR, no significant m/r/g, no calf tenderness GI: +BS throughout, nontender, no guarding/rigidity : no knight MSK/Neuro: no focal deficits, no slurred speech, follows commands Psych: AOx3, cooperative and pleasant Discharge Data Allergies Allergy/AdvReac Type Severity Reaction Status Date / Time No Known Allergies Allergy Verified 01/29/23 16:43 Consultations 01/29/23 18:01 ED Decision to Admit Stat 01/29/23 20:35 Consult Gastroenterology Routine Hospital Course (1) Ulcerative colitis with rectal bleeding: Suspected. Recent taper budesonide in prior months for UC w/ [facility]. Recent CTAP January 25 in ER w/o bowel obstruction. noting mild thickening throughout majority of large bowel and may be secondary to partial distension vs mild nonspecific colitis. ESR/CRP elevated Cdiff/PCR stool testing negative Placed on IV Methylprednisolone, protonix GI consulted -- follows w/ [facility] typically Recs for Uceris 9mg daily x 8 weeks if covered by insurance (verified this was covered) and was tolerating low fiber diet, stools forming and wanting to go home. Continued Protonix given reflux symptoms at discharge as well Has f/u appt with [facility] at the end of this month for further discussion Will need to reschedule her ENtyvio infusion outpatient as discretion primary GI team (2) Starvation ketoacidosis: Resolved with IVF replacement/D5 Diarrhea slowed, anion gap resolved on repeat (3) Acid reflux: Reflux: symptoms suspicious for such. Likely from recent steroid use/possible gastritis and reported having to take Tums recently for symptoms. No NSAID use reported (she said she does NOT take any of those to prevent bleeding risk) PPI ordered and symptoms reported stable and continued daily protonix at discharge F/u GI as above Depression: Continued escitalopram Plan discharged on Uceris 9mg daily, Protonix 40mg daily outpt f/u with [facility] patient to discuss rescheduling her Entyvio infusion Total Time Total Time Spent Total Time Spent (In Minutes): 45 Discharge Plan Discharge Items Patient Disposition: Home - Self-Care Reason For Visit: ULCERATIVE COLITIS FLARE Discharge Diagnosis: Ulcerative Colitis Condition on Discharge: Good Goals: You have been hospitalized for an acute medical problem. During your stay at [facility], we have made an effort to correct the problem that brought you to the hospital while keeping you as comfortable as possible. Medications were used to bring your condition under control and your discharge instructions will include directions for any medications you should take after leaving the hospital. Please make sure you see your Primary Care Provider as part of your follow up plan. Activity: Resume your previous activity Non-emergency contact: Primary Care Provider and Scribing Machine Operator Call non-emergency contact if: you have any medication questions, your symptoms worsen, your pain is not controlled, your pain is concerning for you and you have a fever Follow-up/Referrals: Megan Montana CRNP [Nurse Practitioner] - 02/06/23 9:00 am (VIA TELEPHONE) Charlee Severino MD [Primary Care Provider] - 02/07/23 1:45 pm (WITH DR ARMIJO) Diet: Heart Healthy and Low Fiber Addtl Attending Provider Instructions: You have been hospitalized for acute flare up of your ulcerative colitis and inability to keep up with oral intake at home/malnutrition from such. Stool studies were negative for cdiff/infectious causes and a stool calprotectin level as ordered on admission is pending at discharge and can be followed up with your usual provider. We have provided supportive care with IV fluids and steroids and consultation was undertaken with gastroenterology and they have recommended continuing Uceris (budesonide, a steroid) 9mg by mouth daily for 8 weeks. You got steroids in the IV while in the hospital today and can begin treatment with this orally for tomorrow. We have also given you protonix for acid suppression/reflux symptoms and are continuing this once daily at discharge. You had been given a low fiber diet while inpatient and can advance as tolerated. You will need to have your Entyvio infusion rescheduled and I would discuss timing with your usual pit shoveler prior to resuming this. You should have continued discussion with them about possible need for surgical intervention in the future. Please follow up with Megan Montana/Dr Hoskins as already arranged at the end of this month and please follow up with primary care in the next 7-10 days after discharge to monitor your progress. Please return to the emergency department with any worsening abdominal pain, fever, chest pain, shortness of breath, inability to keep up with oral intake or for any other symptoms concerning for you. It has been a pleasure being a part of the medical team providing for you while you have been in the hospital. Take care! Pending Studies at Discharge: Yes Studies:: stool calprotectin Stand-Alone Forms: [facility] Medications and DC Order Prescriptions: New budesonide [Uceris] 9 mg tablet,delayed and ext.release 9 mg PO DAILY 56 Days Qty: 56 0RF pantoprazole 40 mg tablet,delayed release (DR/EC) 40 mg PO DAILY 56 Days Qty: 56 0RF Continued rosuvastatin 5 mg tablet 5 mg PO HS Entyvio 300 mg Recon Soln 300 mg IV Q30D Rx Instructions: next dose January 30 Mounjaro 10 mg/0.5 mL pen injector 10 mg SUBCUT WE trazodone 50 mg tablet 25 mg PO HS acetaminophen 500 mg Capsule 1,000 mg PO HS PRN (Reason: Sleep) risedronate 150 mg tablet 150 mg PO Q30D escitalopram oxalate 20 mg tablet 10 mg PO QPM ondansetron 4 mg tablet,disintegrating 4 mg PO Q8H PRN (Reason: nausea and vomiting) Qty: 14 0RF Discontinued cefdinir 300 mg capsule 300 mg PO BID 5 Days Qty: 10 0RF Discharge Orders: Discharge Order (Routine); Ordered 01/31/23 Ordered By: Tameka Vick/Other Patient Handouts: ED Ulcerative Colitis Admission Data Admit Date/Time: 01/29/23 17:57 Attending Provider: Jeet Felipe Admit Provider: Chema Hauser Primary Care Provider: Charlee Severino Other Providers: Chema Hauser ; Alexander Mishra Other Interventions: Discharge Summary Assessment (RN) Last Done: 01/31/23 10:46 Supervising Physician Co-Signing Physician Notes The patient was seen by me. The chart was reviewed. Case discussed with ALEXANDER Reed. Agree with assessment and plan. She will be discharged home today on oral steroid therapy Coding Level of Care Code 46858 INP/OBS DISCH >30 MIN Diagnoses Ulcerative colitis with rectal bleeding K51.911 Starvation ketoacidosis T73.0XXA; E87.29 Acid reflux K21.9
[2023-01-31 07:39] LABS: BUN Creatinine Ratio 8.1 (10-20); Calcium 9.6 mg/dl (8.6-10.3); Creatinine Clr Calc Pharmacy 103.2 ml/min; Est GFR (African American) 114.4 ml/min; Est GFR (Non-African American) 98.7 ml/min; Magnesium 1.8 mg/dl (1.7-2.4); Potassium 3.6 mmol/L (3.5-5.1)
[2023-01-31] MEDS: methylPREDNISolone 40 MG in SYRINGE 0 ML IV SCH (08:54)
[2023-01-31] MEDS ORDERED: PANTOprazole 40 MG TAB PO SCH (09:00)
== END 2023-01-31 11:51 | disposition home or self-care (01) | DRG 386 ==
LOC: ED 13:25 → SUATTDRO 17:57 → EDINP 17:57 → 3E 20:35

== ENCOUNTER 2025-03-11 18:08 | Inpatient (IN) ==
--- NOTE | 2025-03-11 18:19 | Emergency Department Note ---
Impression & Plan Infected cat bite of hand ED Provider Note CHIEF COMPLAINT: Worsening cat bite HISTORY OF PRESENTING ILLNESS: This 59-year-old female patient presents to the emergency department with her partner for evaluation of a cat bite to the right hand that appears to be getting worse. The patient was seen in the ER yesterday after being bit by her outdoor cat on the right hand. The patient was trying to get her cat into the carrier to go to the vet after the cat was injured when the cat bit her. The cat only had 1 rabies vaccine in September 2024, but per the vet, this is considered up-to-date. The cat is also currently under quarantine at the patient's home. The patient's tetanus shot is up-to-date. The patient was afebrile, her white blood cell count was normal, and her lactate was normal yesterday. X-rays did not show obvious evidence for foreign body, fracture, or dislocation. The pain, redness, and swelling did slightly improve after IV fluids and IV Tylenol in the ER. Blood cultures were obtained yesterday and are still pending. The patient was given a dose of IV Unasyn and discharged home on oral Augmentin. The patient states that the infection seem to be improving this morning, but then got worse again this afternoon. She now has redness and pain going up the right arm. No discharge from the wounds. Still afebrile. The patient is concerned for worsening infection. REVIEW OF SYSTEMS: See HPI for pertinent positives and pertinent negatives. ALLERGIES: NKDA MEDICATIONS: See below PAST MEDICAL HISTORY: See below PHYSICAL EXAM: VITALS: Vitals are noted on the nurse's note and reviewed by myself. GENERAL: Non toxic, in no acute distress, non-diaphoretic. SKIN: The patient has 2 cat bite puncture wounds to the dorsal and palmar aspect of the right hand mainly over the first metacarpal area and thenar eminence. The puncture wounds do not appear to go into a joint. The scab from the puncture wounds seems to have been lifted slightly with increased swelling underneath. There is some mild induration in this area, but no obvious fluctuance. No obvious foreign bodies and no active bleeding. There is surrounding erythema and edema extending towards the second metacarpal and she also has lymphatic streaking going up the anterior aspect of the right forearm. The patient is tender to palpation in the area of redness and swelling to the right hand as well as the right forearm. Capillary refill <2 sec. HEART: Regular rate and rhythm without murmurs gallops or rubs. LUNGS: Clear to auscultation bilaterally without wheezes, rales or rhonchi. No retractions or accessory muscle use. MUSCULOSKELETAL: See skin exam. The patient is tender to palpation over the area of erythema and edema of the right hand as well as the right forearm. She is able to move the right thumb and all fingers, but with some increased pain. However, does not appear consistent with septic arthritis or tenosynovitis at this time. She states that the pain feels more within the soft tissues and the musculature. Normal sensation to light and sharp touch of the right hand and fingers. Radial pulse 2+. NEURO: Patient was alert and oriented. No focal neurological deficits. DIFFERENTIAL DIAGNOSIS: Differential diagnosis includes laceration, abrasion, puncture wound, fracture, open fracture, tendon injury, ligament injury, nerve injury, vascular injury, foreign body, cellulitis, abscess, septic arthritis, osteomyelitis, tenosynovitis, or other etiologies. ED COURSE AND MEDICAL DECISION MAKING: MEDICATIONS GIVEN: 500 mL normal saline solution bolus. Tylenol 1000 mg IV. Unasyn 3 g IV. Morphine 4 mg IV and Zofran 4 mg IV. INTERPRETATION OF LABS: I interpreted the labs with full lab results as below in the lab section of this note. Laboratory results pertinent to the emergent complaint are discussed in the MDM section below. The patient was advised to follow up with their PCP and/or specialist(s) for further outpatient monitoring and management of any abnormal results. CHRONIC MEDICAL/SOCIAL CONDITIONS AFFECTING CARE: On [facility] for ulcerative colitis CONSULTATIONS: On-call hospitalist PROCEDURES: Risks and benefits of the procedure were discussed. Verbal consent was obtained to perform the procedure and the procedure was performed by myself. Lidocaine jelly was placed on the areas of the puncture wound for anesthesia. After saline and Betadine cleansing I used an 18-gauge needle to deroofed the scabbing. There was a small amount of purulent material that was expressed. After this was noted, ethyl chloride was used to provide additional anesthesia to the puncture wounds. An 11 blade was used to open up the 2 areas of the puncture wounds. A small to moderate amount of purulent material was released with more expressed by pressure. A swab was obtained for culture. The area was then copiously irrigated with sterile saline. A bandage was not placed at this time so that the on-call hospitalist could evaluate the wounds prior to admission. Hemostasis was achieved. The patient tolerated the procedure well. MDM SUMMARY: I examined the patient. The patient was bit by her cat on the right hand yesterday as summarized above. The patient was seen in the ER with reassuring labs and vital signs. She was given a dose of IV Unasyn and discharged home on oral Augmentin. The patient initially thought the infection was improving, but then it got worse this afternoon. She is now having streaking up the right arm. Blood cultures had been obtained yesterday and are still pending. The patient had an x-ray performed yesterday that showed no foreign bodies or acute fracture or dislocation. An IV lock was placed and labs were drawn. The patient was given 500 mL normal saline solution bolus. She was given Tylenol 1000 mg IV followed by morphine 4 mg IV and Zofran 4 mg IV for pain. She was given an additional dose of Unasyn 3 g IV. I was able to drain purulent material from the puncture wounds as above. A culture was obtained and is pending. The patient's white blood cell count is still normal at 5.72 compared to 8.40 yesterday. Hemoglobin normal at 12.8. Platelet count normal at 185. Glucose 142, but BMP otherwise normal. Lactate is normal again today. Due to the worsening infection as well as purulent material expressed from the puncture wounds, the patient will require admission for further management. I spoke with the on-call hospitalist who agreed to admit the patient for further evaluation and treatment. Please refer to their dictation for further details. The patient's care was transferred in stable condition. DIAGNOSIS: Infected cat bite of the right hand Past Med/Surg History Problem List (Updated 03/11/25 @ 22:49 by Kayy Jones PA-C) Infected cat bite of hand (Acute) Cellulitis of right hand (Acute) Cat bite of hand (Acute) Acid reflux Diarrhea (Acute) Ulcerative colitis with rectal bleeding Ulcerative colitis (Acute) IBS (irritable bowel syndrome) Encounter for pre-operative examination Appendicitis with abscess Medical History Diabetes mellitus hx of taking insulin, started Mounjaro weekly and monitoring BSG (per patient it running around ~120) Ulcerative colitis hospitalized [facility] January 2023, started on Rinvoq and doing well. Sleep apnea CPAP History of COVID-19 (2021) home test, mild symptoms>resolved Anxiety Osteoporosis Hyperlipidemia Surgical History Hx of eye surgery (1968) crossed eyes, age 3 Hx of appendectomy (11/2021) Hx of flexible sigmoidoscopy (09/2022) Hx of colonoscopy Family History Mother Family history of diabetes mellitus Grandmother Family history of diabetes mellitus Grandfather Family history of diabetes mellitus Father Family history of colon cancer Uncle Family history of colon cancer Social History Smoking Status: Never smoker Second Hand Exposure: No; Do You Dip or Chew Tobacco: No; Hx Alcohol Use: No Hx Substance Use: No Preferred Language: Czech Communication Ability: Effective Departmental Secretary Required: No Beliefs That Will Affect Care: None Current Living Situation: Family and Significant Other Current Living Situation Comment: roommate Feels Safe at Home: Yes Assistive Devices: CPAP and Glasses Allergies Allergies Allergy/AdvReac Type Severity Reaction Status Date / Time No Known Allergies Allergy Verified 09/17/24 12:49 Home Meds Home Medications Medication Instructions Recorded Confirmed risedronate 150 mg tablet (Actonel) 150 mg PO Q30D osteoporosis 12/03/20 09/17/24 rosuvastatin 5 mg tablet 5 mg PO HS 11/23/21 09/17/24 escitalopram oxalate 20 mg tablet 10 mg PO QPM 01/25/23 09/17/24 trazodone 50 mg tablet 25 mg PO HS 01/29/23 09/17/24 pantoprazole 40 mg tablet,delayed 40 mg PO QPM PRN gerd 02/07/23 09/17/24 release tirzepatide 5 mg/0.5 mL 5 mg subcut WK 09/10/24 09/17/24 subcutaneous pen injector (Mounjaro) upadacitinib 15 mg tablet,extended 15 mg PO QPM 09/10/24 09/17/24 release 24 hr (Rinvoq) Previous Rx's Medication Instructions Recorded amoxicillin 875 mg-potassium 1 tab PO BID 10 days #20 tabs 03/10/25 clavulanate 125 mg tablet Results & Data (ED) Vital Signs Vital Signs - 24 hr 03/11/25 18:10 03/11/25 20:09 03/11/25 21:42 Temperature 37.5 C Temperature Source Temporal Artery Scan Pulse Rate 91 H 88 Pulse Rate [Left Brachial] 88 Pulse Rhythm [Left Brachial] Regular Pulse Strength [Left Brachial] Normal Respiratory Rate 18 20 Respiratory Effort / Characteristics Non-Labored Spontaneous Non-Labored Respiratory Depth Normal Normal Respiratory Pattern Regular Blood Pressure 136/71 Blood Pressure [Right Arm] 111/56 L Blood Pressure Mean 92 Blood Pressure Mean [Right Arm] 74 Blood Pressure Position [Right Arm] Lying Pulse Oximetry 95 96 Oxygen Delivery Method Room Air Room Air Sepsis Recent Fever Within 48 Hours No Sepsis New/Unexplained Change in Mental Status N/A Sepsis Action Taken by Nursing No Action Required Laboratory Data 03/11/25 18:34 03/11/25 18:34 Lab Results 03/11/25 Range/Units 18:34 WBC 5.72 (4.8-10.8) K/ul RBC 3.90 L (4.20-5.40) M/uL Hgb 12.8 (12.0-16.0) g/dl Hct 35.3 L (37.0-47.0) % MCV 90.5 (80.0-100.0) fL MCH 32.8 (25.0-34.0) pg MCHC 36.3 H (32.0-36.0) g/dL RDW Std Deviation 42.5 (36.4-46.3) fL RDW Coeff of James 12.9 (11.5-14.5) % Plt Count 185 (130-400) K/uL MPV 10.4 (9.4-12.4) fL Immature Gran % (Auto) 0.2 % Neut % (Auto) 73.1 % Lymph % (Auto) 14.5 % [place] % (Auto) 11.4 % Eos % (Auto) 0.3 % Baso % (Auto) 0.5 % Neut # (Auto) 4.18 (1.40-6.50) K/uL Lymph # (Auto) 0.83 L (1.20-3.40) K/uL [place] # (Auto) 0.65 H (0.11-0.59) K/uL Eos # (Auto) 0.02 (0.00-0.50) K/uL Baso # (Auto) 0.03 (0.00-0.20) K/uL Immature Gran # (Auto) 0.01 (0.01-0.20) K/uL Sodium 137 (136-145) mmol/L Potassium 3.5 (3.5-5.1) mmol/L Chloride 102 (98-107) mmol/L Carbon Dioxide 26 (21-32) mmol/L Anion Gap 9 (3-11) BUN 11 (6-23) mg/dl Creatinine 1.04 (0.6-1.2) mg/dl Est Cr Clr Drug Dosing 57.0 ml/min eGFR 61.15 BUN/Creatinine Ratio 10.6 (10-20) Glucose 142 H (70-99(Fasting)) mg/dl Lactate 1.1 (0.4-2.0) mmol/L Calcium 9.2 (8.6-10.3) mg/dl Administered Medications Discontinued Medications Sodium Chloride (Nss) 500 mls @ 999 mls/hr IV .Q31M ONE Stop: 03/11/25 18:53 Last Infusion: 03/11/25 19:55 Dose: Infused Documented By: vania Admin: 03/11/25 18:57 Dose: 999 mls/hr Documented By: RAUL Acetaminophen (Ofirmev) 1,000 mg in 100 mls @ 400 mls/hr IV NOW STA Stop: 03/11/25 18:37 Last Infusion: 03/11/25 19:52 Dose: Infused Documented By: Admin: 03/11/25 18:56 Dose: 400 mls/hr Documented By: RAUL Ampicillin Sodium/Sulbactam Sodium (Unasyn) 3,000 mg in 100 mls @ 200 mls/hr IV NOW STA Stop: 03/11/25 18:52 Last Infusion: 03/11/25 20:22 Dose: Infused Documented By: mlish Admin: 03/11/25 19:52 Dose: 200 mls/hr Documented By: RAUL Lidocaine HCl (Lidocaine 2% Jelly 5 Ml Tube) 5 ml EXT NOW ONE Stop: 03/11/25 18:24 Last Admin: 03/11/25 18:56 Dose: 5 ml Documented By: RAUL Morphine Sulfate (Morphine Sulfate 4 Mg/Ml 1 Ml Carp\Vial) 4 mg IV NOW STA Stop: 03/11/25 19:42 Last Admin: 03/11/25 19:52 Dose: 4 mg Documented By: RAUL Ondansetron HCl (Ondansetron Inj 2 Mg/Ml 2 Ml Vial) 4 mg IV NOW STA Stop: 03/11/25 19:42 Last Admin: 03/11/25 19:52 Dose: 4 mg Documented By: RAUL Discharge Plan Visit Data Chief Complaint: Infection Stated Complaint: CAT BITE, REDDNESS/STREAKING ON RT ARM ED Provider: Candelario Allison ED Midlevel Provider: Kayy Jones Discharge Problem: Infected cat bite of hand Patient Disposition: Admitted As Inpatient Condition: Fair Forms Stand Alone Forms: [facility] Prescriptions Prescriptions: No Action rosuvastatin 5 mg tablet 5 mg PO HS pantoprazole 40 mg tablet,delayed release (DR/EC) 40 mg PO QPM PRN (Reason: gerd) trazodone 50 mg tablet 25 mg PO HS risedronate [Actonel] 150 mg tablet 150 mg PO Q30D Patient Comments: once a month escitalopram oxalate 20 mg tablet 10 mg PO QPM Rinvoq 15 mg Tablet Extended Release 24 Hr 15 mg PO QPM Mounjaro 5 mg/0.5 mL Pen Injector 5 mg SUBCUT WK amoxicillin-pot clavulanate 875-125 mg tablet 1 tab PO BID 10 Days Qty: 20 0RF Referrals Referrals: Charlee Severino MD [Primary Care Provider] - Discharge Problem: Infected cat bite of hand Qualifiers: Encounter type: subsequent encounter Laterality: right Qualified Code(s): S 61.451D - Open bite of right hand, subsequent encounter; L08.9 - Local infection of the skin and subcutaneous tissue, unspecified; W55.01XD - Bitten by cat, subsequent encounter
[2025-03-11 18:47] LABS: Hematocrit (blood only) 35.3 % (37.0-47.0); Hemoglobin 12.8 g/dl (12.0-16.0); Immature Granulocytes # (auto) 0.01 K/uL (0.01-0.20); Immature Granulocytes % (auto) 0.2 %; Mean Corpuscular Hemoglobin 32.8 pg (25.0-34.0); Mean Corpuscular Volume 90.5 fL (80.0-100.0); Platelet Count 185 K/uL (130-400); RDW Standard Deviation 42.5 fL (36.4-46.3); Red Blood Count 3.90 M/uL (4.20-5.40); White Blood Count 5.72 K/ul (4.8-10.8)
[2025-03-11] MEDS: ACETAMINOPHEN 1,000 MG/100 ML VIAL IV STA (18:56)
[2025-03-11] MEDS: LIDOCAINE 2% JELLY 5 ML TUBE EXT ONE (18:56)
[2025-03-11] MEDS: SODIUM CHLORIDE 0.9% 500 ML IV ONE (18:57)
[2025-03-11 19:06] LABS: Anion Gap 9.0 (3-11); Blood Urea Nitrogen 11.0 mg/dl (6-23); Calcium 9.2 mg/dl (8.6-10.3); Carbon Dioxide 26.0 mmol/L (21-32); Chloride 102.0 mmol/L (98-107); Creatinine Clr Calc Pharmacy 57.0 ml/min; Glucose 142.0 mg/dl (70-99(Fasting)); Potassium 3.5 mmol/L (3.5-5.1); Sodium 137.0 mmol/L (136-145)
[2025-03-11] MEDS: AMPICILLIN/SULBACTAM SOD 3,000 MG/100 ML BAG IV STA (19:52)
[2025-03-11] MEDS: MoRPHine SULFATE 4 MG/ML 1 ML CARP\\VIAL IV STA (19:52)
[2025-03-11] MEDS: ONDANSETRON INJ 2 MG/ML 2 ML VIAL IV STA (19:52)
--- NOTE | 2025-03-11 20:14 | History & Physical Report ---
Date of Service March 11, 2025 Assessment & Plan (1) Ulcerative colitis with rectal bleeding: (2) Cat bite of hand: Plan Sophia Boothe is a 58 Y O Female with PMHx of Type II DM, Hyperlipidemia, Generalized anxiety disorder, Insomnia, Osteoporosis, ROBERT, GERD and Ulcerative Procto sigmoiditis presented to ER today due to progressive increase in swelling and pain in right hand due to cat bite. She is being admitted for IV antibiotics and pain management. #Cat bite -Bite in dorsal aspect of right hand yesterday -Cat uptodate with Rabies vaccine -She is uptodate with Tetanus shot -Ascending swelling of right hand up to elbow and worsening pain -XR of right hand with no fracture or foreign body -Labs including CBC and CMP WNL -S/P Unasyn in the ER -Pending Wound C/S Plan -Will start on Unasyn 3gm q6hr -For Pain management: Tylenol IV and Morphine -Follow Wound C/S results - May need general surgery consultation if pain and swelling wont get better with IV antibiotics. #Chronic conditions Type II DM: Hold Mounjaro while at hospital. Insulin SS ordered Hyperlipidemia: Continue Rosuvastatin Generalized anxiety disorder:Continue Escitalopram Insomnia: Continue Trazodone GERD: Continue Pantoprazole Ulcerative Proctosigmoiditis: Continue Rinvoq #DVT prophylaxis: Lovenox # Dispo: Med/Surg #Code: Full History of Present Illness Chief Complaint: Cat Bite Primary Care Provider: Charlee Severino MD Sophia Boothe is a 58 Y O Female with PMHx of Type II DM, Hyperlipidemia, Generalized anxiety disorder, Insomnia, Osteoporosis, ROBERT, GERD and Ulcerative Procto sigmoiditis presented to ER today due to worsening of her wound in right hand due to cat bite. She came to ER yesterday after she was bit by her outdoor cat on her right hand and was given Unasyn and discharged home on Augmentin but her wound seems to be worsening . There is increased swelling and pain since today. There is progressive swelling upto right elbow. Denies fever, chills, N/V, diarrhea, chills or constipation. She got her Tetanus shot within last two year. Her cat got rabies vaccine in september 2024 and is currently being quarantined and is healthy. She is a full code ER course today -She got Unasyn, IV Tylenol and Morphine in the ER and feels a lot better after meds Allergies Allergy/AdvReac Type Severity Reaction Status Date / Time No Known Allergies Allergy Verified 09/17/24 12:49 Home Medications Medication Instructions Recorded Confirmed Type risedronate 150 mg tablet (Actonel) 150 mg PO Q30D osteoporosis 12/03/20 09/17/24 History rosuvastatin 5 mg tablet 5 mg PO HS 11/23/21 09/17/24 History escitalopram oxalate 20 mg tablet 10 mg PO QPM 01/25/23 09/17/24 History trazodone 50 mg tablet 25 mg PO HS 01/29/23 09/17/24 History pantoprazole 40 mg tablet,delayed 40 mg PO QPM PRN gerd 02/07/23 09/17/24 History release tirzepatide 5 mg/0.5 mL 5 mg subcut WK 09/10/24 09/17/24 History subcutaneous pen injector (Mounjaro) upadacitinib 15 mg tablet,extended 15 mg PO QPM 09/10/24 09/17/24 History release 24 hr (Rinvoq) amoxicillin 875 mg-potassium 1 tab PO BID 10 days #20 tabs 03/10/25 Rx clavulanate 125 mg tablet Past Med/Surg History Problem List Infected cat bite of hand (Acute) Cellulitis of right hand (Acute) Cat bite of hand (Acute) Acid reflux Diarrhea (Acute) Ulcerative colitis with rectal bleeding Ulcerative colitis (Acute) IBS (irritable bowel syndrome) Encounter for pre-operative examination Appendicitis with abscess Medical History Diabetes mellitus hx of taking insulin, started Mounjaro weekly and monitoring BSG (per patient it running around ~120) Ulcerative colitis hospitalized [facility] January 2023, started on Rinvoq and doing well. Sleep apnea CPAP History of COVID-19 (2021) home test, mild symptoms>resolved Anxiety Osteoporosis Hyperlipidemia Surgical History Hx of eye surgery (1969) crossed eyes, age 3 Hx of appendectomy (11/2021) Hx of flexible sigmoidoscopy (09/2022) Hx of colonoscopy Family History Mother Family history of diabetes mellitus Grandmother Family history of diabetes mellitus Grandfather Family history of diabetes mellitus Father Family history of colon cancer Uncle Family history of colon cancer Social History Smoking Status: Never smoker Second Hand Exposure: No; Do You Dip or Chew Tobacco: No; Hx Alcohol Use: No Hx Substance Use: No Preferred Language: Slovak Communication Ability: Effective Major Assembly Lineman Required: No Beliefs That Will Affect Care: None Current Living Situation: Family and Significant Other Current Living Situation Comment: roommate Feels Safe at Home: Yes Assistive Devices: CPAP and Glasses Review of Systems Review of Systems: As per HPI Physical Exam Physical Exam: Constitutional: Well appearing, No acute distress, PILCCOD: Negative HEENT: Atraumatic, Normocephalic, No conjunctival injection CVS: S1 S2 no murmur, Regular Rhythm, no LE edema Respiratory: BL equal air entry with NVBS. No rhonchi, wheezes, or crackles. No increased work of breathing GI: Soft, Nondistended, Nontender, Normal Bowel sounds + MSK: Right hand: Swollen , erythematous and tender dorsal aspect of right hand upto elbow Skin: Warm, Dry, No rashes Neuro: Alert, Oriented to TPP, No Focal deficit Psych: Mood and Affect congruent, Cooperative on exam Results & Data Results & Data Vital Signs (Past 12 Hours) Vital Signs Temp Pulse Resp BP Pulse Ox O2 Del Method 03/11/25 18:10 37.5 C 91 H 18 136/71 95 Room Air Diagnostic Findings Laboratory Results WBC 5.72 K/ul (4.8-10.8) 03/11/25 18:34 RBC 3.90 M/uL (4.20-5.40) L 03/11/25 18:34 Hgb 12.8 g/dl (12.0-16.0) 03/11/25 18:34 Hct 35.3 % (37.0-47.0) L 03/11/25 18:34 MCV 90.5 fL (80.0-100.0) 03/11/25 18:34 MCH 32.8 pg (25.0-34.0) 03/11/25 18:34 MCHC 36.3 g/dL (32.0-36.0) H 03/11/25 18:34 RDW Std Deviation 42.5 fL (36.4-46.3) 03/11/25 18:34 RDW Coeff of James 12.9 % (11.5-14.5) 03/11/25 18:34 Plt Count 185 K/uL (130-400) 03/11/25 18:34 MPV 10.4 fL (9.4-12.4) 03/11/25 18:34 Immature Gran % (Auto) 0.2 % 03/11/25 18:34 Neut % (Auto) 73.1 % 03/11/25 18:34 Lymph % (Auto) 14.5 % 03/11/25 18:34 [place] % (Auto) 11.4 % 03/11/25 18:34 Eos % (Auto) 0.3 % 03/11/25 18:34 Baso % (Auto) 0.5 % 03/11/25 18:34 Neut # (Auto) 4.18 K/uL (1.40-6.50) 03/11/25 18:34 Lymph # (Auto) 0.83 K/uL (1.20-3.40) L 03/11/25 18:34 [place] # (Auto) 0.65 K/uL (0.11-0.59) H 03/11/25 18:34 Eos # (Auto) 0.02 K/uL (0.00-0.50) 03/11/25 18:34 Baso # (Auto) 0.03 K/uL (0.00-0.20) 03/11/25 18:34 Immature Gran # (Auto) 0.01 K/uL (0.01-0.20) 03/11/25 18:34 Sodium 137 mmol/L (136-145) 03/11/25 18:34 Potassium 3.5 mmol/L (3.5-5.1) 03/11/25 18:34 Chloride 102 mmol/L (98-107) 03/11/25 18:34 Carbon Dioxide 26 mmol/L (21-32) 03/11/25 18:34 Anion Gap 9 (3-11) 03/11/25 18:34 BUN 11 mg/dl (6-23) 03/11/25 18:34 Creatinine 1.04 mg/dl (0.6-1.2) 03/11/25 18:34 Est Cr Clr Drug Dosing 57.0 ml/min 03/11/25 18:34 eGFR 61.15 03/11/25 18:34 BUN/Creatinine Ratio 10.6 (10-20) 03/11/25 18:34 Glucose 142 mg/dl (70-99(Fasting)) H 03/11/25 18:34 Lactate 1.1 mmol/L (0.4-2.0) 03/11/25 18:34 Calcium 9.2 mg/dl (8.6-10.3) 03/11/25 18:34 Supervising Physician Co-Signing Physician Notes Patient seen and examined, chart reviewed, case discussed with Dr. Arvizu and I agree with the assessment and plan as above. In brief, patient is a 59yo female with history of DM, HLP, UC on Rinvoq presenting after a cat bite. Patient has an indoor-outdoor cat, recently adopted. Cat is healthy, UTD with rabies vaccination. Patient was trying to put the cat in a carrier today and the cat bit her on her right hand. She was seen in the ER yesterday - no fracture or foreign body - she was given Unasyn and ultimately discharged home on Augmentin. She returns today with progression of erythma and discomfort of her right hand. Has some stiffness and pain in her right wrist. Fingers not involved. On exam she is resting comfortably, some discomfort in right hand/wrist Skin - erythematous of dorsal surface of right hand with bite puncture turner present, erythemetous streaking extending from hand --> wrist and above elbow. No crepitus or bullae. MMM, Neck supple +S1/S2, regular Lungs CTA Abd soft, NT/ND Labs and images reviewed Assessment/Plan -Admit to medical -Follow wound culture sent from ER -Monitor area of redness daily -Continue Unasyn -Tylenol PRN pain -Insulin sliding scale - goal blood sugar 110- 160 -Remainder as above (2) Cat bite of hand Encounter type: initial encounter Laterality: right Qualified Code(s): S61.451A - Open bite of right hand, initial encounter; W55.01XA - Bitten by cat, initial encounter
[2025-03-11] MEDS ORDERED: ONDANSETRON INJ 2 MG/ML 2 ML VIAL IV PRN (23:21)
[2025-03-11] MEDS ORDERED: POLYETHYLENE (MIRALAX) 17 GM PACK PO PRN (23:21)
[2025-03-11] MEDS ORDERED: MoRPHine SULFATE 2 MG/ML CARP IM PRN (23:21)
[2025-03-11] MEDS ORDERED: MAGNESIUM HYDROXIDE SUSP 30 ML UDC PO PRN (23:21)
[2025-03-11] MEDS ORDERED: ALUMINUM/MAGNESIUM SUSP 30 ML UDC PO PRN (23:21)
[2025-03-12] MEDS: ESCITALOPRAM OXALATE 10 MG TAB PO SCH (00:03)
[2025-03-12] MEDS: ROSUVASTATIN CALCIUM 5 MG TAB PO SCH (00:03)
[2025-03-12] MEDS: ACETAMINOPHEN 1,000 MG/100 ML VIAL IV SCH (00:04)
[2025-03-12 00:07] VITALS: RESP 18
--- NOTE | 2025-03-12 00:18 | Billing Data ---
Date of Service March 11, 2025 Coding Level of Care Code 00571 INT INP/OBS CARE
[2025-03-12] MEDS ORDERED: GLUCOSE 40% GEL 15 GM TUBE PO PRN (00:27)
[2025-03-12] MEDS ORDERED: CARBOHYDRATES FOR HYPOGLYCEMIA PO PRN (00:27)
[2025-03-12] MEDS ORDERED: GLUCOSE 10 TAB/TUBE PO PRN (00:27)
[2025-03-12] MEDS ORDERED: GLUCAGON FOR INJ 1 MG VIAL SQ PRN (00:27)
[2025-03-12] MEDS ORDERED: DEXTROSE 50% 50 ML SYRINGE IV PRN (00:27)
[2025-03-12] MEDS: AMPICILLIN/SULBACTAM SOD 3,000 MG/100 ML BAG IV SCH (00:28)
[2025-03-12 07:19] LABS: Hematocrit (blood only) 32.9 % (37.0-47.0); Hemoglobin 11.8 g/dl (12.0-16.0); Immature Granulocytes # (auto) 0.00 K/uL (0.01-0.20); Immature Granulocytes % (auto) 0.0 %; Mean Corpuscular Hemoglobin 32.5 pg (25.0-34.0); Mean Corpuscular Volume 90.6 fL (80.0-100.0); Platelet Count 140 K/uL (130-400); RDW Standard Deviation 42.0 fL (36.4-46.3); Red Blood Count 3.63 M/uL (4.20-5.40); White Blood Count 3.04 K/ul (4.8-10.8)
[2025-03-12 07:56] LABS: Alanine Aminotransferase 49.0 U/L (7-52); Albumin Globulin Ratio 1.5 (0.9-2); Alkaline Phosphatase 48.0 U/L (34-104); Anion Gap 6.0 (3-11); Bilirubin,Total 0.9 mg/dl (0.2-1.0); Blood Urea Nitrogen 9.0 mg/dl (6-23); Calcium 8.5 mg/dl (8.6-10.3); Carbon Dioxide 27.0 mmol/L (21-32); Chloride 106.0 mmol/L (98-107); Creatinine Clr Calc Pharmacy 72.0 ml/min; Globulin 2.5 gm/dl (2.5-4.0); Glucose 94.0 mg/dl (70-99(Fasting)); Potassium 3.8 mmol/L (3.5-5.1); Sodium 139.0 mmol/L (136-145); Total Protein 6.3 gm/dl (6.0-8.3)
[2025-03-12] MEDS: INSULIN ASPART PER UNIT CHARGE SC SCH (08:54)
[2025-03-12] MEDS ORDERED: MoRPHine SULFATE 2 MG/ML CARP IV PRN (10:44)
--- NOTE | 2025-03-12 11:01 | Orthopedic Consultation ---
Date of Service March 12, 2025 Assessment & Plan (1) Infected cat bite of hand: (2) Cellulitis of right hand: Plan * Case/imaging reviewed and discussed with Dr Vázquez * Recommend continued conservative management of cat bite and local cellulitis * Exam consistent with spreading superficial cellulitis, low concern for deeper infection/abscess or infectious flexor tenosynovitis * No further orthopedic intervention indicated at this time * Continue IV antibiotics * Consider MRI hand if not improving after 24 hours IV antibiotics * Warm Betadine soaks twice daily * Weight bearing status: Activity as tolerated * Daily treatment: Physical Therapy/ Occupational Therapy per protocol * Pain control * Disposition: TBD * Remainder care per primary team * Will continue to follow History of Present Illness Reason for Consultation: . Right hand pain Requesting Physician: . Attending Physician: Maggi Arellano MD . Patient is a 59y/o female with right hand pain. PMH including diabetes, ulcerative colitis, anxiety, HLD. Presents to hospital with right hand pain after a cat bite. Patient reports she was initially bit on (2 days ago), initially seen in ED at that time was prescribed oral antibiotics which patient was compliant with taking. However noted continued pain and swelling over the day yesterday so returned to ED yesterday evening for further evaluation. Worsening redness spreading up the forearm. ED workup including WBC 5.7, afebrile. X-ray right hand with no fracture or deep foreign body. Bedside I&D was performed revealing his small amount of purulent material, culture sent. Admitted to hospital for IV antibiotics. Orthopedics consulted for management recommendations. At time of exam patient sitting comfortably in bed, no acute distress. Endorses constant moderate pain of the right hand/thenar area with mild soft tissue swelling from the base of her thumb spreading proximally up the volar aspect of forearm to the medial elbow no active drainage from wounds following I&D yesterday. Allergies Allergy/AdvReac Type Severity Reaction Status Date / Time No Known Allergies Allergy Verified 09/17/24 12:49 Home Medications Medication Instructions Recorded Confirmed Type risedronate 150 mg tablet (Actonel) 150 mg PO Q30D osteoporosis 12/03/20 09/17/24 History rosuvastatin 5 mg tablet 5 mg PO HS 11/23/21 09/17/24 History escitalopram oxalate 20 mg tablet 10 mg PO QPM 01/25/23 09/17/24 History trazodone 50 mg tablet 25 mg PO HS 01/29/23 09/17/24 History pantoprazole 40 mg tablet,delayed 40 mg PO QPM PRN gerd 02/07/23 09/17/24 History release tirzepatide 5 mg/0.5 mL 5 mg subcut WK 09/10/24 09/17/24 History subcutaneous pen injector (Mounjaro) upadacitinib 15 mg tablet,extended 15 mg PO QPM 09/10/24 09/17/24 History release 24 hr (Rinvoq) amoxicillin 875 mg-potassium 1 tab PO BID 10 days #20 tabs 03/10/25 Rx clavulanate 125 mg tablet Past Med/Surg History Problem List Infected cat bite of hand (Acute) Cellulitis of right hand (Acute) Cat bite of hand (Acute) Acid reflux Diarrhea (Acute) Ulcerative colitis with rectal bleeding Ulcerative colitis (Acute) IBS (irritable bowel syndrome) Encounter for pre-operative examination Appendicitis with abscess Medical History Diabetes mellitus hx of taking insulin, started Mounjaro weekly and monitoring BSG (per patient it running around ~120) Ulcerative colitis hospitalized [facility] January 2023, started on Rinvoq and doing well. Sleep apnea CPAP History of COVID-19 (2021) home test, mild symptoms>resolved Anxiety Osteoporosis Hyperlipidemia Surgical History Hx of eye surgery (1969) crossed eyes, age 3 Hx of appendectomy (11/2021) Hx of flexible sigmoidoscopy (09/2022) Hx of colonoscopy Family History Mother Family history of diabetes mellitus Grandmother Family history of diabetes mellitus Grandfather Family history of diabetes mellitus Father Family history of colon cancer Uncle Family history of colon cancer Social History Smoking Status: Never smoker Second Hand Exposure: No; Do You Dip or Chew Tobacco: No; Hx Alcohol Use: No Hx Substance Use: No Preferred Language: Yoruba Communication Ability: Effective [employer] Glassware Replacer Required: No Beliefs That Will Affect Care: None Current Living Situation: Significant Other Current Living Situation Comment: roommate Feels Safe at Home: Yes Assistive Devices: Glasses Review of Systems All systems reviewed & are unremarkable except as noted in HPI & below. Physical Exam . * General: Alert and oriented, no acute distress * Constitutional: well-developed, well-nourished. * Respiratory: Normal respiratory effort, no distress * Gastrointestinal: No tenderness to palpation, no rigidity or guarding. * Skin: No rash or lesion. * Neurologic: Grossly normal * Musculoskeletal: Right hand with small puncture wounds to the volar and dorsal aspect of the thenar region, these are both scabbed over with no active drainage. Diffuse mild soft tissue swelling and mild erythema from the thenar area across the volar aspect of the forearm to the medial elbow. Diffuse TTP across the volar forearm, wrist, and base of the thumb. AROM flexion and extension of wrist and all fingers intact, subjective pain reported, but no apparent limitation. Sensation intact radial/radial/ulnar nerve distributions. Brisk capillary refill of all digits. Results & Data Results & Data Laboratory Results . 03/11/25 Unknown Gram Stain - Final Hand Aerobic and Anaerobic Culture - Preliminary Pasteurella multocida 03/12/25 03/12/25 03/12/25 07:29 07:27 06:50 WBC 3.04 L RBC 3.63 L Hgb 11.8 L Hct 32.9 L MCV 90.6 MCH 32.5 MCHC 35.9 RDW Std Deviation 42.0 RDW Coeff of James 12.8 Plt Count 140 MPV 10.2 Immature Gran % (Auto) 0.0 Neut % (Auto) 67.7 Lymph % (Auto) 17.4 Rutherford % (Auto) 12.2 Eos % (Auto) 2.0 Baso % (Auto) 0.7 Neut # (Auto) 2.06 Lymph # (Auto) 0.53 L Rutherford # (Auto) 0.37 Eos # (Auto) 0.06 Baso # (Auto) 0.02 Immature Gran # (Auto) 0.00 L Sodium 139 Potassium 3.8 Chloride 106 Carbon Dioxide 27 Anion Gap 6 BUN 9 Creatinine 0.82 Est Cr Clr Drug Dosing 72.0 eGFR 81.33 BUN/Creatinine Ratio 11.0 Glucose 94 POC Glucose 97 Lactate Calcium 8.5 L Total Bilirubin 0.9 AST 38 ALT 49 Alkaline Phosphatase 48 Total Protein 6.3 Albumin 3.8 Globulin 2.5 Albumin/Globulin Ratio 1.5 03/11/25 18:34 WBC 5.72 RBC 3.90 L Hgb 12.8 Hct 35.3 L MCV 90.5 MCH 32.8 MCHC 36.3 H RDW Std Deviation 42.5 RDW Coeff of James 12.9 Plt Count 185 MPV 10.4 Immature Gran % (Auto) 0.2 Neut % (Auto) 73.1 Lymph % (Auto) 14.5 Rutherford % (Auto) 11.4 Eos % (Auto) 0.3 Baso % (Auto) 0.5 Neut # (Auto) 4.18 Lymph # (Auto) 0.83 L Rutherford # (Auto) 0.65 H Eos # (Auto) 0.02 Baso # (Auto) 0.03 Immature Gran # (Auto) 0.01 Sodium 137 Potassium 3.5 Chloride 102 Carbon Dioxide 26 Anion Gap 9 BUN 11 Creatinine 1.04 Est Cr Clr Drug Dosing 57.0 eGFR 61.15 BUN/Creatinine Ratio 10.6 Glucose 142 H POC Glucose Lactate 1.1 Calcium 9.2 Total Bilirubin AST ALT Alkaline Phosphatase Total Protein Albumin Globulin Albumin/Globulin Ratio Diagnostic Findings . PG Care Time/CCT Total # of Minutes Spent Total Time Spent with Patient: Total time spent is greater than 50% in coordination of care (as documented) at patient's floor/unit and/or counseling patient: [place] [address] IN/OBS CONSULT LVL 4,60M Patient Type New History Problem Focused Exam Problem Focused Medical Decision Making Moderate Complexity Diagnoses Infected cat bite of hand S61.451D; L08.9; W55.01XD Encounter type: subsequent encounter Laterality: right Cellulitis of right hand L03.113 (1) Infected cat bite of hand Encounter type: subsequent encounter Laterality: right Qualified Code(s): S61.451D - Open bite of right hand, subsequent encounter; L08.9 - Local infection of the skin and subcutaneous tissue, unspecified; W55.01XD - Bitten by cat, subsequent encounter
[2025-03-12] MEDS: ENOXAPARIN INJ 40 MG/0.4 ML SYR SQ SCH (12:36)
--- NOTE | 2025-03-12 13:40 | Hospitalist Progress Note ---
Date of Service March 12, 2025 Assessment & Plan (1) Cat bite of hand: (2) Ulcerative colitis with rectal bleeding: Plan Sophia Boothe is a 58 Y O Female with PMHx of Type II DM, Hyperlipidemia, Generalized anxiety disorder, Insomnia, Osteoporosis, ROBERT, GERD and Ulcerative Procto sigmoiditis presented to ER due to progressive increase in swelling and pain in right hand due to cat bite despite being on oral antibiotics. She is being admitted for cellulitis of the right hand due to cat bite. #Cat bite cellulitis of the hand - Was seen in the ED 03/10/25 for initial evaluation of the bite. XR at the time showing no fracture or retained foreign body. Was treated with IV Unasyn and d/c home on Augmentin. Represented to ED yesterday 03/11/25 for worsening pain, swelling and erythema of the dorsal and palmar aspect of the right hand. Cat is healthy and UTD with rabies vaccination. Patient UTD with tetanus vaccine. On admission, CBC, CMP wnl. Given patient's immunocompromised status due to Rinvoq with rapid worsening of cellulitis spreading up the arm despite oral antibiotics, we want to treat in the hospital with IV antibiotics - There is no previous picture for comparison, however there does not look like there is much improvement of the cellulitis on exam today. Erythematous streaking up to the elbow. Borders of erythema are marked with pen and have not spread beyond the marked ink. Patient reports to have improved flexion/extension of the fingers and wrist of the right hand. However, still very painful and tender to touch. - Patient remains afebrile and without leukocytosis. - wound cultures growing Pasteurella multocida. Continue abx therapy : Unasyn 3g IV q6h. - blood cultures - no growth after 24 hours - Orthopedic surgery consulted and appreciate recommendations - recommend 24hr abx and consider MRI if no improvement after that time. There is no further orthopedic intervention indicated at this time. - repeat CBC, BMP qAM - pain management with Tylenol and morphine prn Type II DM: - Hold Mounjaro while at hospital. Insulin SS ordered - A1c 5.8% from 06/2024 - will repeat panel in AM - fasting glucose from AM BMP - 94. POC glucose 92. Hyperlipidemia: - continue Rosuvastatin - lipid panel from 06/2024 - total 239, TG 165, HDL 38, LDL 168; will repeat panel in AM Generalized anxiety disorder - continue home lexapro 5 mg Insomnia: - continue home trazodone 25 mg GERD: - Patient reports she does not take antacids Ulcerative Proctosigmoiditis - given recent infection and immunocompromised status - hold Rinvoq was infection improving to prevent rapid spread/sepsis #DVT prophylaxis: Lovenox # Dispo: Med/Surg Admission and Anticipated Discharge Date Admission Date: March 11, 2025 Supervising Physician Co-Signing Physician Notes I personally examined the patient and verified all hou points of history and exam, discussed case, and agree with decision making with Dr. May with the following additions/exceptions: S-patient reports since seen by the resident this morning, the swelling and redness and pain have somewhat reduced. She has been elevating the arm above her heart all day. No diarrhea or abdominal pains, no other concerns denies lightheadedness or headaches, no chest pain or shortness of breath, no nausea or abdominal pains. O- Vitals Reviewed Gen: AAOx3, NAD HEENT: Anicteric sclerae, EOMI CV: RRR no mgr nl S1S2 Pulm: CTAB no wcr Abd: +BS soft NT ND no masses or hernias Ext: Right hand with edema diffusely more on the dorsal surface with erythema spreading up the volar forearm but starting to recede from drawn marker line, positive TTP, 2 incisional scabs on volar and dorsal surface of thenar prominence. With full range of motion of all fingers without significant tenderness and able to make a fist and extend, 2+ radial pulse on the right CBC, BMP, wound culture, blood cultures reviewed Assessment/Plan-this patient is a 59-year-old female with a history of ulcerative colitis on written Sandor, depression, hyperlipidemia, DM2, here with right hand cat bite with cellulitis rapidly spreading Will on oral antibiotics in the setting of immunocompromised state - Slowly improving with IV antibiotics alone-continue IV Unasyn - Continue to elevate the arm - With Pasteurella on wound cultures-follow sensitivities but most likely Unasyn should be fine. Follow-up final wound cultures for other organisms - Follow blood cultures - Follow CBC, BMP in the morning - Adjust NovoLog to get rid of carbohydrate coverage as her blood sugars are [id number] HgbA1c in the morning - Adjusted her actual rosuvastatin dose is up to 40 mg and she only takes 5 mg of Lexapro - Appreciate orthopedic surgery input Subjective Patient seen and examined at bedside this morning. Awake and resting comfortably in bed. No acute distress. No overnight concerns. Reports still having pain in her right hand up to her elbow. Has been able to flex/extend her fingers more easily compared to yesterday. Ambulating, voiding, moving bowels w/o concern. Tolerating diet w/o N/V/D. Denies chest pain, SOB, palpitations Review of Systems 2 Review of Systems: as per hpi Physical Exam 2 Constitutional: WD/WN, vitals as above Respiratory: normal respiratory effort, lungs clear to auscultation Cardiovascular: RRR, no murmur, no edema Gastrointestinal (Abdomen): normal bowel sounds, soft, nontender, no hepatosplenomegaly Musculoskeletal: There are two cat bite puncture wounds on the dorsal and palmar aspects of the right hand over thenar eminence and 1st metacarpal area, without joint involvement. Wounds have scabbed over without overt bleeding, pus, or drainage. Exquistely tender to palpation over the dorsal and palmar aspect of the right hand. No area of fluctance. Erythema up forearm to the elbow. Able to flex and extend the finger of the right hand and right wrist relatively well, however there is some reported pain. Sensation intact throughout. Capillary refill <2 sec. Skin: no rashes, warm and dry Neurologic: no focal neurological deficits Psychiatric: A+Ox3, euthymic affect Results & Data Results & Data Vital Signs (Past 12 Hours) Vital Signs Temp Pulse Resp BP Pulse Ox O2 Del Method O2 Flow Rate 03/12/25 12:41 36.3 C L 68 18 106/69 98 Nasal Cannula 3 03/12/25 07:14 36.7 C 61 18 92/57 L 95 Room Air 03/12/25 01:44 36.4 C L 94 H 18 134/86 97 Room Air (1) Cat bite of hand Encounter type: initial encounter Laterality: right Qualified Code(s): S 61.451A - Open bite of right hand, initial encounter; W55.01XA - Bitten by cat, initial encounter
--- NOTE | 2025-03-12 16:39 | Billing Data ---
Date of Service March 12, 2025 Coding Level of Care Code 80360 SUB INP/OBS CARE MIN
[2025-03-12] MEDS: ACETAMINOPHEN 325 MG TAB PO PRN (20:43)
[2025-03-12] MEDS: MELATONIN 3 MG TAB PO PRN (20:44)
[2025-03-13 06:51] LABS: Hematocrit (blood only) 32.3 % (37.0-47.0); Hemoglobin 11.8 g/dl (12.0-16.0); Immature Granulocytes # (auto) 0.00 K/uL (0.01-0.20); Immature Granulocytes % (auto) 0.0 %; Mean Corpuscular Hemoglobin 32.9 pg (25.0-34.0); Mean Corpuscular Volume 90.0 fL (80.0-100.0); Platelet Count 150 K/uL (130-400); RDW Standard Deviation 41.1 fL (36.4-46.3); Red Blood Count 3.59 M/uL (4.20-5.40); White Blood Count 2.61 K/ul (4.8-10.8)
[2025-03-13 07:21] LABS: Anion Gap 6.0 (3-11); Blood Urea Nitrogen 9.0 mg/dl (6-23); Calcium 9.0 mg/dl (8.6-10.3); Carbon Dioxide 27.0 mmol/L (21-32); Chloride 107.0 mmol/L (98-107); Cholesterol 115.0 mg/dl (0-200); Creatinine Clr Calc Pharmacy 77.7 ml/min; Glucose 85.0 mg/dl (70-99(Fasting)); HDL Cholesterol 43.0 mg/dl; Potassium 3.7 mmol/L (3.5-5.1); Sodium 140.0 mmol/L (136-145); Triglycerides 138.0 mg/dl (0-150)
[2025-03-13 07:44] LABS: Hemoglobin A1C 5.2 % (4.5-5.6)
[2025-03-13 07:47] VITALS: TEMP 98.4; O2SAT 96
--- NOTE | 2025-03-13 08:00 | Orthopedic Progress Note ---
Date of Service March 13, 2025 Assessment & Plan (1) Infected cat bite of hand: (2) Cellulitis of right hand: Plan * Continue Current Treatment * Improving well on IV abx * Recommend continued abx therapy, consider transition from IV to PO * No further procedure or surgery indicated * Weight bearing status: As tolerated * Disposition: Home * F/u with ortho PRN * Remainder care per primary team * Stable for discharge from ortho standpoint, further planning per primary team Subjective .Active Problems: R hand cellulitis, cat bite 59 y/o female with right hand cellulitis after cat bite. Improving well on IV abx. Exam not concerning for deep abscess of infectious tenosynovitis. Doing well overall, pain managed and improved function. Denies fever/chills, chest pain/SOB, nausea/vomiting. Otherwise no complaints. Review of Systems All systems reviewed & are unremarkable except as noted in HPI & below. Physical Exam * General: Alert and oriented, no acute distress * Constitutional: well-developed, well-nourished. * Respiratory: Normal respiratory effort, no distress * Gastrointestinal: No tenderness to palpation, no rigidity or guarding. * Skin: No rash or lesion. * Neurologic: Grossly normal * Musculoskeletal: Right hand with small puncture wounds to the volar and dorsal aspect of the thenar region, these are both scabbed over with no active drainage. Diffuse mild soft tissue swelling and mild erythema from the thenar area across the volar aspect of the forearm to the medial elbow, improved from yesterday's exam. Diffuse mild TTP across the volar forearm, wrist, and base of the thumb. AROM flexion and extension of wrist and all fingers intact, subjective pain reported, but no apparent limitation. Sensation intact radial/radial/ulnar nerve distributions. Brisk capillary refill of all digits. Results & Data Results & Data Laboratory Results . Diagnostic Findings . PG Care Time/CCT Total # of Minutes Spent Total Time Spent with Patient: Total time spent is greater than 50% in coordination of care (as documented) at patient's floor/unit and/or counseling patient: Coding [place] [address] SUB INP/OBS CARE 08/14MIN Patient Type Established Diagnoses Infected cat bite of hand S61.451D; L08.9; W55.01XD Encounter type: subsequent encounter Laterality: right Cellulitis of right hand L03.113 (1) Infected cat bite of hand Encounter type: subsequent encounter Laterality: right Qualified Code(s): S61.451D - Open bite of right hand, subsequent encounter; L08.9 - Local infection of the skin and subcutaneous tissue, unspecified; W55.01XD - Bitten by cat, subsequent encounter
[2025-03-13] MEDS: ROSUVASTATIN CALCIUM 20 MG TAB PO SCH (09:01)
[2025-03-13] MEDS: ESCITALOPRAM OXALATE 10 MG TAB PO SCH (09:02)
--- NOTE | 2025-03-13 10:35 | Discharge Summary ---
Date of Service March 13, 2025 Admission HPI Per Admitting Provider Sophia Boothe is a 58 Y O Female with PMHx of Type II DM, Hyperlipidemia, Generalized anxiety disorder, Insomnia, Osteoporosis, ROBERT, GERD and Ulcerative Procto sigmoiditis presented to ER today due to worsening of her wound in right hand due to cat bite. She came to ER yesterday after she was bit by her outdoor cat on her right hand and was given Unasyn and discharged home on Augmentin but her wound seems to be worsening . There is increased swelling and pain since today. There is progressive swelling upto right elbow. Denies fever, chills, N/V, diarrhea, chills or constipation. She got her Tetanus shot within last two year. Her cat got rabies vaccine in september 2024 and is currently being quarantined and is healthy. She is a full code ER course today -She got Unasyn, IV Tylenol and Morphine in the ER and feels a lot better after meds Admission Exam Per Admitting Provider Constitutional: Well appearing, No acute distress, PILCCOD: Negative HEENT: Atraumatic, Normocephalic, No conjunctival injection CVS: S1 S2 no murmur, Regular Rhythm, no LE edema Respiratory: BL equal air entry with NVBS. No rhonchi, wheezes, or crackles. No increased work of breathing GI: Soft, Nondistended, Nontender, Normal Bowel sounds + MSK: Right hand: Swollen , erythematous and tender dorsal aspect of right hand u pto elbow Skin: Warm, Dry, No rashes Neuro: Alert, Oriented to TPP, No Focal deficit Psych: Mood and Affect congruent, Cooperative on exam Principal Diagnosis cellulitis of the right hand 2/2 cat bite; Pasteurella multocida infection Discharge Exam Constitutional WD/WN, vitals as above Eyes PERRL, conjunctivae normal, anicteric sclerae Respiratory normal respiratory effort, lungs clear to auscultation Cardiovascular RRR, no murmur, no edema Gastrointestinal (Abdomen) normal bowel sounds, soft, nontender, no hepatosplenomegaly Musculoskeletal no cyanosis or clubbing, extremities motor strength 5/5 Mild erythema and swelling over the dorsal and palmar aspects of the right hand - much improved from yesterday's exam. 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 Flexion/extension of the right fingers and wrist normal without being limited to pain. Two puncture wounds still present over dorsal and palmar aspects - scabbed over without overt drainage or bleeding. Erythema that was noted yesterday up to the right elbow is much improved - not extending beyond pen turner. Skin no rashes, warm and dry Neurologic no focal neurological deficits Psychiatric A+Ox3, euthymic affect Discharge Data Allergies Allergy/AdvReac Type Severity Reaction Status Date / Time No Known Allergies Allergy Verified 09/17/24 12:49 Consultations 03/11/25 20:01 ED Decision to Admit Stat 03/12/25 09:31 Consult Orthopedic Surgery Routine Hospital Course (1) Cat bite of hand: (2) Ulcerative colitis with rectal bleeding: Sophia Murillo is a 58 Y O Female with PMHx of Type II DM, Hyperlipidemia, Generalized anxiety disorder, Insomnia, Osteoporosis, ROBERT, GERD and Ulcerative Procto sigmoiditis presented to ER due to progressive increase in swelling and pain in right hand due to cat bite despite being on oral antibiotics. She is being admitted for cellulitis of the right hand due to cat bite. #Cat bite cellulitis of the hand - Seen in the ED 03/10/25 for initial evaluation of the bite. XR at the time showing no fracture or retained foreign body. Was treated with IV Unasyn and d/c home on Augmentin. Represented to ED yesterday 03/11/25 for worsening pain, swelling and erythema of the dorsal and palmar aspect of the right hand. Cat is healthy and UTD with rabies vaccination. Patient UTD with tetanus vaccine. On admission, CBC, CMP wnl. Given patient's immunocompromised status due to Rinvoq with rapid worsening of cellulitis spreading up the arm despite oral antibiotics, therefore was admitted to for treatment with IV antibiotics - There is marked improvement of the right hand/upper extremity on exam today compared to yesterday. Swelling, erythema, and pain level has much improved. Still mildly tender to palpation over the dorsal aspect of right hand, but improved from previous exam. Improved AROM in flexion/extension of the right wrist without limitation to pain. - Wound cultures have been preliminary resulted for Pasteurella multocida; anaerobic cultures pending. Have been treating with Unasyn 3g IV q6h since admission - switching to oral abx on discharge. Blood cultures have shown no growth for 48 hours. - Patient has remained afebrile and without leukocytosis during admission, however AM labs today showing leukopenic (WBC 2.61), this is likely in the setting of infection with Pasteurella and with patient's immunocompromised state. ANC 1610k - Orthopedic surgery consulted and appreciate recommendations. There was no need for surgical intervention for infection during admission. - Augmentin 875-125mg PO q12h for 7 days (total course 10 days) on discharge. Continue home pain management with Tylenol. Plan to repeat CBC within 1 week with patient's PCP. Type II DM: - repeated A1c this AM - 5.2%. Taking Mounjaro at home and was held here, sliding scale insulin ordered, however not needed during admission as glucose levels have been well-controlled. - can continue Mounjaro home dose on discharge. Hyperlipidemia: - repeated lipid panel this morning as previous was from 06/2024. LDL 44, HDL 43. Will continue home rosuvastatin 40mg daily. Generalized anxiety disorder - no concerns during admission; continue home lexapro Insomnia: - continue home trazodone 25 mg GERD: - Patient reports she does not take antacids Ulcerative Proctosigmoiditis - given recent infection and immunocompromised status, Rinvoq was held during admission. Plan to continue holding after discharge until antibiotic course is finished and patient is cleared to start by PCP. infection improving to prevent rapid spread/sepsis #DVT prophylaxis: Lovenox - not needed at home on discharge # Dispo: home today with PCP follow-up in 1-2 weeks. Total Time Total Time Spent Total Time Spent (In Minutes): 45 Total Time Includes: Examination of the Patient, Discharge Planning, Medication Reconciliation and Communication With Other Providers Discharge Plan Discharge Items Patient Disposition: Home - Self-Care Reason For Visit: CAT BITE Discharge Diagnosis: Cat bit cellulitis of the right hand Condition on Discharge: Fair Activity: Resume your previous activity Non-emergency contact: Primary Care Provider Call non-emergency contact if: you have any medication questions, your symptoms worsen and you have a fever Follow-up/Referrals: Charlee Severino MD [Primary Care Provider] - (Follow up within 1-2 weeks) Diet: Regular Addtl Attending Provider Instructions: You were admitted to [facility] for treatment of cellulitis of the right hand due to the recent cat bite. You were treated with IV antibiotics during your admission which has started to improve your infection. You will be transitioned to oral antibiotics on discharge - Augmentin 875-125mg every 12 hours for 7 days. Please hold your Rinvoq until antibiotic course is completed and infection is clear. Please follow-up with your PCP in 1-2 weeks for repeat labs (CBC) and for evaluation of the infection. Please continue the soaks of the hand twice a day with betadine/iodine, mixed with sterile saline and hydrogen peroxide x 1 week. Resume your home medications as prescribed. Pending Studies at Discharge: Yes Studies:: wound cultures final Stand-Alone Forms: [facility], Smoking Cessation Medications and DC Order Prescriptions: New amoxicillin-pot clavulanate 875-125 mg tablet 1 tab PO BID 7 Days Qty: 14 0RF Continued trazodone 50 mg tablet 25 mg PO HS rosuvastatin 40 mg tablet 40 mg PO DAILY escitalopram oxalate [Lexapro] 5 mg Tablet 5 mg PO DAILY Mounjaro 7.5 mg/0.5 mL pen injector 7.5 mg SUBCUT Q7D Rx Instructions: Takes on Wednesdays Held Rinvoq 15 mg Tablet Extended Release 24 Hr 15 mg PO QPM Hold Instructions: Resume on 03/22/25. hold until antibiotic are finished/infection clears. Please follow-up with PCP for clearance to resume medication Discontinued amoxicillin-pot clavulanate 875-125 mg tablet 1 tab PO BID 10 Days Qty: 20 0RF Discharge Orders: Discharge Order (Routine); Ordered 03/13/25 Ordered By: Maggi Vick/Other Patient Handouts: Nutrition for Wound Healing, Managing Type 2 Diabetes Admission Data Admit Date/Time: 03/11/25 20:33 Attending Provider: Maggi Arellano Admit Provider: Dwayne Arvizu Primary Care Provider: Charlee Severino Other Providers: Geri Dumont; Ata Vázquez Supervising Physician Co-Signing Physician Notes I personally examined the patient and verified all hou points of history and exam, discussed case, and agree with decision making with Dr. 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 No fevers, chills, abd pain, diarrhea. No acute concerns O- Vitals Reviewed Gen: AAOx3, NAD HEENT: Anicteric sclerae, EOMI CV: RRR no mgr nl S1S2 Pulm: CTAB no wcr Ext: Right hand with much improved edema on the dorsal surface and only small amount edema thenar prominence around bite wounds- with only minimal erythema up the volar forearm, 2 incisional scabs on volar and dorsal surface of thenar prominence. With full range of motion of all fingers without significant tenderness and able to make a fist and extend, 2+ radial pulse on the right CBC, BMP, wound culture, blood cultures reviewed Assessment/Plan-this patient is a 59-year-old female with a history of ulcerati ve colitis on written Sandor, depression, hyperlipidemia, DM2, here with right hand cat bite with cellulitis rapidly spreading while on oral antibiotics in the setting of immunocompromised state. Overall much improved, no I&D needed, pain, swelling, erythema improved. No fevers, stable for discharge. - received IV Unasyn x 3 days and convert to po Augmentin on dishcarge for Pasteurella on cultures -f/u final wound cxs after discharge but augmentin would cover for anaerobes even if grows out after dc - Continue to elevate the arm and do betadine/H2O2/Saline soaks bid after dc x 1 weeks Resident Activity Tracking Resident Involvement: Resident Care Provided Care Provided: Adult Hospital Medicine
--- NOTE | 2025-03-13 11:25 | Billing Data ---
Date of Service March 13, 2025 Coding Level of Care Code 43767 INP/OBS DISCH >30 MIN Time Spent (min) 35 Comment 35 min of time spent in face to face, coordination of care,review of labs
[2025-03-13 11:37] VITALS: BP 119/66; PULSE 83
== END 2025-03-13 14:21 | disposition home or self-care (01) | DRG 605 ==
LOC: ED 18:08 → SUATTDRO 20:33 → EDINP 20:33 → 3N 23:21